=== PATIENT | female | born 1970 | race Caucasian/White ===

== ENCOUNTER 2020-04-21 16:13 | Outpatient (CLI) | payer OTHER, SELFPAY ==
--- NOTE | ~2020-04-21 | MM_ITS ---
EXAMINATION: MM screening dionicio BI w zoila HISTORY: Screening mammogram TECHNIQUE: Craniocaudal and mediolateral oblique 3-D tomosynthesis images were obtained and synthetic 2-D images were generated. CAD analysis was submitted and interpreted. COMPARISON: 12/02/2013, 11/08/2010 bilateral digital screening mammogram examinations BREAST PARENCHYMAL COMPOSITION: The breasts are heterogeneously dense, which may obscure small masses . FINDINGS: Stable mild fibroglandular asymmetry. There is no evidence of suspicious mass, calcificatio n, or architectural distortion to suggest malignancy in either breast. There has been no suspicious i nterval change. IMPRESSION: 1. No mammographic evidence of malignancy. 2. Recommend routine screening mammography in one year. BI-RADS Category 2: Benign finding(s). Reviewed, dictated and finalized at location A.
== END 2020-04-21 16:14 | disposition home or self-care (01) ==
LOC: ANHIMG 16:17
PROVIDERS: PCP Family Medicine; Visit Provider Obstetrics & Gynecology
DX: Z12.31 Encounter for screening mammogram for malignant neoplasm of breast (principal)
CPT/HCPCS: 77063; 77067

== ENCOUNTER 2021-05-03 07:37 | Outpatient (CLI) | payer OTHER, SELFPAY ==
[2021-05-03 16:16] LABS: Hemoglobin 12.5 g/dL (12.0-15.0); Mean Corpuscular HGB Conc 32.9 g/dl (32-36); Mean Corpuscular Hemoglobin 31.3 pg (26-34); Mean Platelet Volume 10.6 fl (7.4-10.4); Platelet Count Result 231 k/mm3 (150-375); Red Cell Distribution Width 11.8 % (11.5-14.5); White Blood Count 5.6 K/mm3 (4.5-10.0)
[2021-05-03 17:53] LABS: Alanine Aminotransferase 15 U/L (4-35); Albumin Level 5.2 g/dL (3.5-5.1); Alkaline Phosphatase 48 U/L (38-126); Anion Gap 6 mmol/L (8-16); Aspartate Amino Transferase 28 U/L (14-36); Bilirubin,Total 0.5 mg/dL (0.2-1.3); Blood Urea Nitrogen 10 mg/dL (7-17); Calcium 8.8 mg/dL (8.4-10.2); Carbon Dioxide 25 mmol/L (22-30); Chloride 103 mmol/L (98-107); Cholesterol 187 mg/dL (0-200); Estimated Glomerular Filt Rate > 60; Glucose 92 mg/dL (65-110); HDL Direct 96 mg/dL; Potassium 4.3 mmol/L (3.4-5.0); Sodium 134 mmol/L (137-145); Triglycerides 99 mg/dL (<150)
[2021-05-03 18:02] LABS: LDL Cholesterol Direct 86 mg/dL
== END 2021-05-03 07:38 | disposition home or self-care (01) ==
PROVIDERS: PCP Family Medicine; Visit Provider Family Medicine
DX: F51.01 Primary insomnia (principal); F41.1 Generalized anxiety disorder; Z13.220 Encounter for screening for lipoid disorders; I10 Essential (primary) hypertension
CPT/HCPCS: 36415; 80053; 80061; 84443; 85027

== ENCOUNTER 2021-05-24 08:33 | Outpatient (CLI) | payer OTHER, SELFPAY ==
--- NOTE | ~2021-05-24 | MM_ITS ---
EXAMINATION: MM screening [facility] BI w zoila HISTORY: Screening mammogram TECHNIQUE: Craniocaudal and mediolateral oblique 3-D tomosynthesis images were obtained and synthetic 2-D images were generated. CAD analysis was submitted and interpreted. COMPARISON: 04/21/2020, 12/02/2013, 11/08/2010 BREAST PARENCHYMAL COMPOSITION: The breasts are heterogeneously dense, which may obscure small masses . FINDINGS: There is no evidence of suspicious mass, calcification, or architectural distortion to sugg est malignancy in either breast. There has been no suspicious interval change. IMPRESSION: 1. No mammographic evidence of malignancy. 2. Recommend routine screening mammography in one year. BI-RADS Category 1: Negative Reviewed, dictated and finalized at location A. 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
== END 2021-05-24 08:34 | disposition home or self-care (01) ==
PROVIDERS: PCP Family Medicine; Visit Provider Obstetrics & Gynecology
DX: Z12.31 Encounter for screening mammogram for malignant neoplasm of breast (principal)
CPT/HCPCS: 77063; 77067

== ENCOUNTER 2021-07-13 09:20 | Emergency (ER) | payer OTHER, SELFPAY ==
[2021-07-13 09:26] VITALS: BP 132/82; PULSE 91; RESP 16; TEMP 37.2; O2SAT 100
--- NOTE | 2021-07-13 09:31 | ED.URI ---
HPI - URI/Sore Throat General Chief Complaint: Upper Respiratory Infection Stated Complaint: Flu test Time Seen by Provider: 07/13/21 09:31 Source: patient and family History of Present Illness HPI Narrative: Patient presents with generalized body aches and fever. Patient is requesting a flu test. Patient states her place of employment has several coworkers out ill with influenza. Patient denies any cough no shortness of breath no chest. Patient states she notified employee health and has a COVID-19 test scheduled for July 15. Patient is fully vaccinated and boosted for her COVID-19. Related Data Allergies Allergy/AdvReac Type Severity Reaction Status Date / Time levofloxacin Allergy Intermediate NAUSEA, Verified 07/13/21 09:54 VOMITING lorazepam Allergy Intermediate orthostatic Verified 07/13/21 09:54 hypotension Review of Systems Review of Systems: CONSTITUTIONAL: Denies chills, or sweats. Reports fever and generalized body aches EYES: Denies visual changes, redness, or discharge. ENT: Denies otalgia. Reports nasal congestion runny nose and sore throat CARDIOVASCULAR: Denies chest pain, palpitations, or edema. RESPIRATORY: Denies dyspnea. Reports occasional cough GASTROINTESTINAL: Denies abdominal pain, nausea, vomiting, or diarrhea. GENITOURINARY: Denies dysuria or hematuria. SKIN: Denies rash or itching. MUSCULOSKELETAL: Denies back pain, joint pain, or myalgia. Reports generalized body aches NEUROLOGIC: Denies headache, numbness, or weakness. PSYCHIATRIC: Denies anxiety or depression. PMFSH Family History Family History Mother Hypertension Family history of elevated blood lipids Father Family history of cardiovascular disease Cerebrovascular accident Grandparent Family history of thoracic aortic aneurysm Other Family history of attention deficit hyperactivity disorder (ADHD) Family history of malignant melanoma Family history of malignant neoplasm Family history of migraine headaches Social History Social History Alcohol intake: current Comments At time of signature, agree with nursing past medical, surgical, social and family history. There is no relevant family history pertinent to the presenting complaint Exam Narrative: The patient is a well-developed, well-nourished in no acute distress. SKIN: Skin is warm and dry without erythema, swelling or exudate. There is good turgor. No tenting. HEAD: Atraumatic. Normocephalic. No temporal or scalp tenderness. EYES: Moist and bright. Sclera and conjunctivae normal. No discharge. PERRLA. Extraocular motions intact. Gross visual acuity intact. EARS: Pinna is normal shape and contour. Clear external auditory canals. TM pearly fernandez with good cone of light, no erythema or suppuration. Bilateral cerumen noted no gross hearing deficit. NOSE: pink, moist mucosa with good air movement. Clear rhinorrhea without nasal flaring. Septum midline. Mouth: moist mucous membranes. THROAT; mild erythema noted to posterior oropharynx with moderate postnasal drainage. Without exudate or ulceration.. Uvula midline. Normal movement of soft palate. NECK: Supple and nontender with full range of motion without discomfort. No meningeal signs. LUNGS: Equal and bilateral breath sounds without wheezes, rales or rhonchi. CHEST: The chest wall is without retractions or use of accessory muscles. HEART: Has a regular rate and rhythm without murmur, gallops, click or rub. ABDOMEN: Soft, nontender with positive active bowel sounds. No rebound tenderness. EXTREMITIES: Without cyanosis, clubbing or edema. Equal 2+ distal pulses and 2 second capillary refill noted. NEUROLOGIC: alert, active, . The patient moves all extremities with normal muscle strength. Normal muscle tone is noted. Normal coordination is noted. NO focal neurological findings noted. Course C
== END 2021-07-13 10:12 | disposition home or self-care (01) ==
PROVIDERS: Emergency Provider Nurse Practitioner Family; PCP Family Medicine
DX: J11.1 Influenza due to unidentified influenza virus with other respiratory manifestations (principal); E78.00 Pure hypercholesterolemia, unspecified; I10 Essential (primary) hypertension; F41.9 Anxiety disorder, unspecified; F32.9 Major depressive disorder, single episode, unspecified
CPT/HCPCS: 87804; 99213; G0463

== ENCOUNTER → 2021-08-06 00:11 | Outpatient (CLI) | payer OTHER, SELFPAY ==
[2021-08-06 16:55] LABS: SARS-CoV-2 RNA PCR Positive
== END ==
PROVIDERS: PCP Family Medicine; Visit Provider Family Medicine
DX: U07.1 COVID-19 (principal); R05.9 Cough, unspecified
CPT/HCPCS: C9803; U0003; U0005

== ENCOUNTER 2022-01-13 11:33 | Outpatient (CLI) | payer OTHER, SELFPAY ==
--- NOTE | ~2022-01-13 | US_ITS ---
EXAMINATION: US venous doppler LE RT DATE: 01/13/2022 12:13 INDICATION: Right lower limb pain. TECHNIQUE: Grayscale ultrasound images without and with compression and Doppler ultrasound images of the right lower extremity veins were obtained. COMPARISON: None. FINDINGS: The visualized portions of right common femoral vein, profunda (deep) femoral vein, femoral vein, pop liteal vein, peroneal veins, posterior tibial veins, and greater saphenous vein outflow are patent. IMPRESSION: 1. No deep venous thrombosis. Reviewed, dictated and finalized at location A.
[2022-01-13 12:30] LABS: Hematocrit 38.9 % (37.0-47.0); Hemoglobin 13.1 g/dL (12.0-15.0); Mean Corpuscular HGB Conc 33.7 g/dl (32-36); Mean Corpuscular Hemoglobin 31.5 pg (26-34); Mean Corpuscular Volume 93.5 fl (80-100); Mean Platelet Volume 9.6 fl (7.4-10.4); Platelet Count Result 263 k/mm3 (150-375); Red Blood Count 4.16 M/mm3 (4.2-5.4); White Blood Count 9.2 K/mm3 (4.5-10.0)
[2022-01-13 13:15] LABS: Alanine Aminotransferase 15 U/L (6-35); Albumin Level 4.2 g/dL (3.5-5.1); Alkaline Phosphatase 54 U/L (38-126); Anion Gap 8 mmol/L (8-16); Aspartate Amino Transferase 27 U/L (14-36); Bilirubin,Total 0.4 mg/dL (0.2-1.3); Blood Urea Nitrogen 14 mg/dL (7-17); Calcium 8.7 mg/dL (8.4-10.2); Carbon Dioxide 22 mmol/L (22-30); Chloride 107 mmol/L (98-107); Cholesterol 192 mg/dL (0-200); Estimated Glomerular Filt Rate > 60; Glucose 93 mg/dL (65-110); HDL Direct 78 mg/dL; Magnesium 2.1 mg/dL (1.6-2.3); Sodium 137 mmol/L (137-145); Triglycerides 117 mg/dL (<150)
[2022-01-13 13:28] LABS: LDL Cholesterol Direct 71 mg/dL
== END 2022-01-13 11:34 | disposition home or self-care (01) ==
PROVIDERS: PCP Family Medicine; Visit Provider Family Medicine
DX: M79.604 Pain in right leg (principal); Z79.899 Other long term (current) drug therapy; M79.606 Pain in leg, unspecified; F41.9 Anxiety disorder, unspecified; I10 Essential (primary) hypertension; Z13.220 Encounter for screening for lipoid disorders; Z13.0 Encounter for screening for diseases of the blood and blood-forming organs and certain disorders involving the immune mechanism; M79.605 Pain in left leg
CPT/HCPCS: 36415; 80053; 80061; 83735; 85027; 93971

== ENCOUNTER 2022-08-11 08:30 | Outpatient (CLI) | payer OTHER, SELFPAY ==
[2022-08-11 10:21] LABS: Alanine Aminotransferase 21 U/L (6-35); Albumin Level 4.5 g/dL (3.5-5.1); Alkaline Phosphatase 50 U/L (38-126); Anion Gap 7 mmol/L (8-16); Aspartate Amino Transferase 28 U/L (14-36); Bilirubin,Total 0.6 mg/dL (0.2-1.3); Blood Urea Nitrogen 12 mg/dL (7-17); Calcium 8.6 mg/dL (8.4-10.2); Carbon Dioxide 25 mmol/L (22-30); Chloride 104 mmol/L (98-107); Estimated Glomerular Filt Rate > 60; Glucose 83 mg/dL (65-110); Potassium 3.9 mmol/L (3.4-5.0); Sodium 136 mmol/L (137-145)
== END 2022-08-11 08:31 | disposition home or self-care (01) ==
PROVIDERS: PCP Family Medicine; Visit Provider Obstetrics & Gynecology
DX: Z79.899 Other long term (current) drug therapy (principal)
CPT/HCPCS: 36415; 80053

== ENCOUNTER 2023-01-04 19:03 | Outpatient (NON) | payer OTHER, SELFPAY | END 2023-01-04 19:04 | disposition home or self-care (01) | LOC: ANHOBOP 19:05 → ANHLAB 19:10 | PROVIDERS: PCP Family Medicine; Visit Provider Family Medicine | DX: N39.0 Urinary tract infection, site not specified (principal) | CPT/HCPCS: 87086; 87088 ==

== ENCOUNTER 2023-01-31 13:50 | Outpatient (CLI) | payer OTHER, SELFPAY ==
[2023-01-31 14:23] LABS: Appearance Urine Clear (Clear); Bacteria Urine None Seen /hpf; Bilirubin Urine Negative (Negative); Blood Urine Negative (Negative); Color Urine Yellow (Yellow); Glucose Urine UA Negative (Negative); Ketones Urine Negative (Negative); Leukocyte Esterase Ur 1+ LEU/UL (Negative); Nitrate Urine Negative (Negative); Non Pathogenic Casts 0-2; Protein Urine Negative (Negative); RBC Urine 0-2 /hpf (0-2); Specific Grav Ur 1.007 (1.001-1.035); Squamous Epithelial Cell Urine Occasional /hpf (Few); Urobilinogen Urine 0.2 mg/dL (<2.0); pH Urine 6.5 (5.0-9.0)
[2023-01-31 14:27] LABS: Add Urine Microscopic? YES
== END 2023-01-31 13:51 | disposition home or self-care (01) ==
LOC: ANHLAB 13:52
PROVIDERS: PCP Family Medicine; Visit Provider Nurse Practitioner
DX: R35.0 Frequency of micturition (principal)
CPT/HCPCS: 81001; 87086

== ENCOUNTER 2023-03-08 09:38 | Outpatient (CLI) | payer OTHER, SELFPAY ==
--- NOTE | ~2023-03-08 | MR_ITS ---
EXAMINATION: MR foot RT wo con DATE: 03/08/2023 10:28 INDICATION: Right midfoot pain. TECHNIQUE: Magnetic resonance imaging (MRI) of the right foot was performed without intravenous contr ast. COMPARISON: None FINDINGS: There is a skin marker medial plantar to navicular. Bone alignment is normal. No fracture. Lisfranc ligament is normal. The joint spaces are normal. The musculature is normal. There is subcuta neous edema in the foot. There is a 2.0 x 0.8 x 0.4 cm multiloculated ganglion cyst dorsal to lateral intercuneiform joint. IMPRESSION: 1. No abnormality in the area of the skin marker. 2. 2.0 x 0.8 x 0.4 cm multiloculated ganglion cyst dorsal to the lateral intercuneiform joint. Reviewed, dictated and finalized at location E. IMPRESSION: 1. No abnormality in the area of the skin marker. 2. 2.0 x 0.8 x 0.4 cm multiloculated ganglion cyst dorsal to the lateral interc uneiform joint.
== END 2023-03-08 09:39 | disposition home or self-care (01) ==
PROVIDERS: PCP Family Medicine; Visit Provider Podiatrist Foot & Ankle Surgery
DX: M79.671 Pain in right foot (principal)
CPT/HCPCS: 73718

== ENCOUNTER 2023-08-01 08:00 | Outpatient (CLI) | payer OTHER, SELFPAY ==
[2023-08-01 19:26] LABS: Alanine Aminotransferase 44 U/L (6-35); Alkaline Phosphatase 76 U/L (38-126); Anion Gap 6 mmol/L (8-16); Aspartate Amino Transferase 83 U/L (14-36); Bilirubin,Total 0.6 mg/dL (0.2-1.3); Blood Urea Nitrogen 16 mg/dL (7-17); Calcium 9.2 mg/dL (8.4-10.2); Carbon Dioxide 29 mmol/L (22-30); Chloride 101 mmol/L (98-107); Cholesterol 190 mg/dL (0-200); Estimated Glomerular Filt Rate > 60; Glucose 84 mg/dL (65-110); HDL Direct 64 mg/dL; Potassium 4.4 mmol/L (3.4-5.0); Sodium 136 mmol/L (137-145); Triglycerides 54 mg/dL (<150)
[2023-08-01 19:37] LABS: LDL Cholesterol Direct 103 mg/dL
[2023-08-01 20:22] LABS: Free T4 Free Thyroxine 1.01 ng/mL (0.78-2.19)
[2023-08-01 20:51] LABS: Hemoglobin A1C 4.8 % (<5.7)
== END 2023-08-01 08:01 | disposition home or self-care (01) ==
LOC: ANHWCLAB 08:01
PROVIDERS: PCP Family Medicine
DX: E78.5 Hyperlipidemia, unspecified (principal); R63.5 Abnormal weight gain; I10 Essential (primary) hypertension
CPT/HCPCS: 36415; 80053; 80061; 83036; 84439; 84443

== ENCOUNTER 2023-08-15 07:53 | Outpatient (CLI) | payer OTHER, SELFPAY ==
--- NOTE | ~2023-08-15 | US_ITS ---
Limited Abdominal Sonogram: Real-time sonographic imaging of the right upper quadrant was performed. Clinical History: Abnormal serum enzyme levels Findings: The liver appears normal with no evidence of bile duct dilatation. There is a 1 cm hyperec hoic mass in liver, most likely a small hemangioma. 2 hepatic cysts are present, each measuring 1.7 c m in length. Main portal vein demonstrates normal direction of flow. The gallbladder is well distende d, and appears normal with no evidence of gallstone or wall thickening. The common bile duct measures 4 mm. The visualized pancreas, aorta, and IVC are unremarkable. Impression: 1 cm hyperechoic hepatic mass, most likely small hemangioma. Consider confirmation with MRI, as indic ated. Additional hepatic cysts, as above. Reviewed, dictated and finalized at [facility]. 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 Consider confirmat ion with MRI, as indicated. Additional hepatic cysts, as above.
== END 2023-08-15 07:54 | disposition home or self-care (01) ==
LOC: ANHIMG 07:54
PROVIDERS: PCP Family Medicine; Visit Provider Nurse Practitioner
DX: R74.8 Abnormal levels of other serum enzymes (principal); K76.89 Other specified diseases of liver
CPT/HCPCS: 76705

== ENCOUNTER 2023-08-23 07:53 | Outpatient (CLI) | payer OTHER, SELFPAY ==
--- NOTE | ~2023-08-23 | MR_ITS ---
EXAMINATION: MR abdomen wo/w con INDICATION: Indeterminate liver mass on recent ultrasound TECHNIQUE: Coronal SSFSE ARC, WATER:coronal LAVA-FLEX, Coronal 2D FIESTA FatSat, Axial SSFSE BH ARC, Axial 3D DualEcho BH, Axial SSFSE-IR, Axial DWI b=500, Axial 2D FIESTA FatSat, pre and dynamic postco ntrast Axial LAVA ARC, postcontrast Coronal In and Opposed phase LAVA FLEX COMPARISON: Ultrasound dated 08/15/2023 CONTRAST: Multihance, 15 cc FINDINGS: There is a 1.2-0.8 cm T1 hypointense, T2 hyperintense mass in liver segment which demons trates early interrupted peripheral nodular enhancement and progressive filling on successive postcon trast sequences, consistent with a hemangioma. A 5 mm lesion with similar signal characteristics is p resent in liver segment VII. There is a 2.5 cm cyst in liver segment Jigar. There is a 1.5 cm cyst in l iver segment II. No suspicious liver mass is identified. The spleen, pancreas, gallbladder, and adren al glands are normal. The kidneys are unremarkable. There are no pathologically enlarged abdominal ly mph nodes. No dilated loops of bowel are evident. IMPRESSION: 1. Hemangiomas and cysts of the liver corresponding to the sonographically detected liver masses. Reviewed, dictated and finalized at location L. 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 Hemangiomas and cysts of the liver corresponding to the sonographically dete cted liver masses.
== END 2023-08-23 07:54 | disposition home or self-care (01) ==
PROVIDERS: PCP Family Medicine; Visit Provider Nurse Practitioner
DX: K76.89 Other specified diseases of liver (principal); R16.0 Hepatomegaly, not elsewhere classified
CPT/HCPCS: 74183; A9577

== ENCOUNTER 2023-08-30 07:58 | Outpatient (CLI) | payer OTHER, SELFPAY ==
[2023-08-30 09:05] LABS: Anion Gap 4 mmol/L (8-16); Blood Urea Nitrogen 16 mg/dL (7-17); Carbon Dioxide 29 mmol/L (22-30); Chloride 104 mmol/L (98-107); Estimated Glomerular Filt Rate > 60; Potassium 4.3 mmol/L (3.4-5.0); Sodium 137 mmol/L (137-145)
[2023-08-30 09:06] LABS: Alanine Aminotransferase 23 U/L (6-35); Albumin Level 4.2 g/dL (3.5-5.1); Alkaline Phosphatase 60 U/L (38-126); Aspartate Amino Transferase 37 U/L (14-36); Bilirubin,Total 0.7 mg/dL (0.2-1.3); Glucose 90 mg/dL (65-110)
== END 2023-08-30 07:59 | disposition home or self-care (01) ==
LOC: ANHLAB 07:59
PROVIDERS: PCP Family Medicine; Visit Provider Nurse Practitioner
DX: R74.8 Abnormal levels of other serum enzymes (principal)
CPT/HCPCS: 36415; 80053

== ENCOUNTER 2023-10-08 07:53 | Outpatient (CLI) | payer OTHER, SELFPAY ==
--- NOTE | ~2023-10-08 | MM_ITS ---
EXAMINATION: MM screening dionicio BI w zoila HISTORY: Screening mammogram TECHNIQUE: Craniocaudal and mediolateral oblique 3-D tomosynthesis images were obtained and synthetic 2-D images were generated. CAD analysis was submitted and interpreted. COMPARISON: 05/24/2021, 04/21/2020 bilateral screening mammogram examinations BREAST PARENCHYMAL COMPOSITION: The breasts are heterogeneously dense, which may obscure small masses . FINDINGS: There is no evidence of suspicious mass, calcification, or architectural distortion to sugg est malignancy in either breast. There has been no suspicious interval change. IMPRESSION: 1. No mammographic evidence of malignancy. 2. Recommend routine screening mammography in one year. BI-RADS Category 1: Negative Reviewed, dictated and finalized at location A.
== END 2023-10-08 07:54 | disposition home or self-care (01) ==
LOC: ANHIMG 07:56
PROVIDERS: PCP Family Medicine; Visit Provider Obstetrics & Gynecology
DX: Z12.31 Encounter for screening mammogram for malignant neoplasm of breast (principal)
CPT/HCPCS: 77063; 77067

== ENCOUNTER 2024-02-05 15:58 | Outpatient (CLI) | payer OTHER, SELFPAY ==
--- NOTE | ~2024-02-05 | US_ITS ---
EXAMINATION: US pelvic complete w TV DATE: 02/05/2024 17:10 INDICATION: Postmenopausal bleeding TECHNIQUE: Multiple transabdominal and endovaginal sonographic images of the pelvis were obtained. COMPARISON: None. FINDINGS: Uterus: 9.2 x 4.5 x 7.6 cm. Endometrial complex measures 9 mm. Right Ovary: 3.6 x 1.8 x 2.8 cm. Vascular flow is present. No adnexal mass. Left Ovary: 4.8 x 1.8 x 2.9 cm. Vascular flow is present. No adnexal mass. There is no free fluid in the pelvis. IMPRESSION: Endometrial thickening. Consider endometrial sampling. Reviewed, dictated and finalized at location K.
== END 2024-02-05 15:59 | disposition home or self-care (01) ==
PROVIDERS: PCP Family Medicine
DX: N95.0 Postmenopausal bleeding (principal)
CPT/HCPCS: 76830; 76856

== ENCOUNTER 2024-02-19 14:26 | Outpatient (CLI) | payer OTHER, SELFPAY ==
[2024-02-21 07:03] LABS: FSH 34.3 mIU/mL; LH 15.2 mIU/mL
[2024-02-29 00:09] LABS: Estradiol, Ultrasensitive 58 pg/mL
== END 2024-02-19 14:27 | disposition home or self-care (01) ==
LOC: ANHLAB 14:28
PROVIDERS: PCP Family Medicine; Visit Provider Obstetrics & Gynecology
DX: N95.1 Menopausal and female climacteric states (principal)
CPT/HCPCS: 36415; 82670; 83001; 83002

== ENCOUNTER 2024-09-19 07:34 | Outpatient (CLI) | payer OTHER, SELFPAY ==
--- OUTSIDE RECORDS SUMMARY | 2024-09-19 07:42 | XMS_ITS | Data Portability ---
Author Organization [facility] in Office Address [address] [place] [address] Assessment Encounter Date Assessment Date Assessment LastModified by Organization Details LastModified Time 10/24/2023 10/24/2023 Today, we had a long discussion on the importance of weight on future health problems and she is motivated to start diet and lifestyle changes at this time. We discussed that fighting off excess weight could help reduce her future risk of metabolic syndrome, diabetes, cardiovascular disease, and other health problems. At this point, she is interested in trying medication for weight management. I spent over 35 minutes of oqnx-ct-kloz counseling and care coordination time with the patient. This includes reviewing medical records (medical, surgical, family and social history); updating medication and allergy information in the electronic health record; and ordering labs, medications, and education materials to continue patient care. I also spent extensive time during this weight management consultative visit educating, counseling and informing the patient on her personalized risk/benefit ratio on the use of lifestyle changes and medication use for weight management. Reviewed medication use and link to medullary thyroid cancer. [email or web address] Not available 10/28/2023 14:22:41 01/21/2024 01/21/2024 I spent 30 minutes of tmaa-le-wwcx counselling and care coordination time with the patient. This includes reviewing medical records (medical, surgical, family and social history); updating medication and allergy information in the electronic health record; and ordering labs, medications, and education materials to continue patient care. [email or web address] Not available 01/21/2024 16:54:53 05/21/2024 05/21/2024 I spent 25 minutes of ptpp-sc-tmuu counselling and care coordination time with the patient. This includes reviewing medical records (medical, surgical, family and social history); updating medication and allergy information in the electronic health record; and ordering labs, medications, and education materials to continue patient care. [email or web address] Not available 05/21/2024 12:24:22 07/15/2024 07/15/2024 I spent 30 minutes of ozmc-tl-gsax counselling and care coordination time with the patient. This includes reviewing medical records (medical, surgical, family and social history); updating medication and allergy information in the electronic health record; and ordering labs, medications, and education materials to continue patient care. [email or web address] Not available 07/15/2024 15:59:49 09/02/2024 09/02/2024 I spent 30 minutes of tpjo-ds-ddio counselling and care coordination time with the patient. This includes reviewing medical records (medical, surgical, family and social history); updating medication and allergy information in the electronic health record; and ordering labs, medications, and education materials to continue patient care. [email or web address] Not available 09/02/2024 15:49:49 Plan of Treatment Reminders Order Date Submit Date Provider Last Modified By Organization Details Last Modified Time Details Appointments [id number] 2024 10:00A Ming Duff NP Not available Not available Not available Lab None recorded. Referral None recorded. Procedures None recorded. Surgeries None recorded. Imaging US, pelvis, transabdo lelo + transvagi nal - post menopausa l with three episodes recent 3 day vag bleed thank you 2023 024 [facility], [address], [address], 02/06/2024 10:15:35 Medication Orders Semagluti de MIDI 2024 025 [facility], [address] [facility], [place], [address], 09/02/2024 15:51:53 Semagluti de MIDI 2024 025 [facility], [address] [facility], [place], [address], 07/15/2024 12:50:11 estradiol 0.05 mg/24 hr semiweekl y transderm al patch [address] [id number], [address] [facility], [place], [place], [id number], 01/21/2024 16:56:43 progester one micronize d 100 mg capsule [address] [facility] #[id number], [address], [place], [place], [id number], 01/21/2024 16:56:43 Semagluti de MIDI 2023 024 [facility], [address] [facility] [address], [place], [address], 10/24/2023 12:10:19 Patient TargetsNo targets recorded. Patient Instructions Encounter Date Encounter Id Patient Instructions Last Modified By Organization Details Last Modified Time 10/24/2023 [id number] Sleep Disruption MID[facility] [email or web address] Not available 10/24/2023 12:10:14 [facility] FAQs [email or web address] Not available 10/24/2023 12:10:14 Any requested follow-up visits are listed below in the Plan of Care section. Go directly to the [facility] materials scheduler at [email or web address] to book a time. [email or web address] Not available 10/23/2023 21:12:08 It was a pleasur e to meet with you today! We discussed your health concerns related to your recent weight loss and the return of your menstrual cycle. Your Care Plan Together, we decided that you would: - Continue with your current dose of semaglutide (0.5 milligrams) weekly. Please confirm this dosage with [facility] when you reorder your medication. If there's any confusion, let me know via the patient portal and I'll be happy to assist. - Schedule an ultrasound at [facility] to investigate the cause of your recent menstrual bleeding. Try to schedule this close to the time of your next expected period. If there are any issues with scheduling, please let me know. - Increase your intake of fruits and vegetables. Consider adding a multivitamin or green supplement to your diet to ensure you're getting all the necessary nutrients. - Try to eat more frequently throughout the day, aiming for five to six small meals. This can help slow down your weight loss and ensure you're getting enough calories to maintain your muscle mass. - Incorporate weight lifting into your exercise routine. Consider using BigRepube for guidance and aim to do this twice a week. This can help preserve and build muscle mass. - We will order labs during our next meeting to monitor your progress. Please carefully review the care plan we have decided upon, specific information regarding your medication, and important details about your treatment detailed below. Remember, we're playing the long game here. It's important to make sure your weight loss is sustainable and healthy, and that you're getting all the nutrients you need. If you have any questions or concerns, or if anything unusual comes up, please don't hesitate to reach out via the patient portal. Thank you for trusting us with your care! [email or web address] Not available 10/28/2023 14:19:56 01/21/2024 [id number] Any requested follow-up visits are listed below in the Plan of Care section. Go directly to the [facility] materials scheduler at [email or web address] to book a time. [email or web address] Not available 01/21/2024 12:58:46 It was a pleasur e to meet with you today! We discussed your health concerns related to menopause and weight management. Your Care Plan Together, we decided that you would: - Continue taking semaglutide at a maintenance dose of 15 units. This medication is helping you maintain your weight and reduce food cravings. Please continue to monitor your weight and let us know if there are any significant changes. - Continue using the estrogen patch for menopause symptoms. You reported no problems with this treatment. - Schedule and complete a transvaginal and transabdominal ultrasound. This is to investigate the monthly shedding you've been experiencing. It's important to note the number of days from the start of the last shed when you schedule the ultrasound. Please let us know the results via the patient portal. - Work on increasing your muscle mass. This can help with weight management and overall strength as you age. Consider incorporating activities such as weighted vest walks, lifting small dumbbells, and doing squats and lunges into your routine. - Schedule a follow-up appointment for six weeks from now, on February 25 at 8:00 am. We will discuss the results of your ultrasound at this appointment. - Let us know when you need to reorder semaglutide via the patient portal. Please carefully review the care plan we have decided upon, specific information regarding your medication, and important details about your treatment detailed above. Thank you for trusting us with your care! [email or web address] Not available 01/21/2024 13:27:46 05/21/2024 [id number] Any requested follow-up visits are listed below in the Plan of Care section. Go directly to the [facility] materials scheduler at [email or web address] to book a time. [email or web address] Not available 05/21/2024 08:02:46 It was a pleasur e to meet with you today! We discussed your health concerns related to your weight management and the use of semaglutide. Your Care Plan Together, we decided that you would: - Continue using semaglutide, but at a slightly lower dose than prescribed to maintain your current weight of around 140 pounds (BMI 24). - Consider moving your semaglutide injection to every 10 days instead of weekly. Please mague this on your calendar carefully to ensure you do not exceed a 2-week gap between injections. If you do exceed two weeks, you may need to start again at the initial dose to allow your stomach to acclimate. - Be aware of the concentration of the semaglutide you receive. Always read the label on the bottle when you first get it to ensure it's the same or if they've adjusted it for you. This is important as changes in concentration can affect your dosage and potentially cause a roller coaster of a week. - Request a refill of your semaglutide from [facility] when you are on your last dose. If they tell you that you don't have a refill, let me know on the portal and I'll put one in right away. - Schedule a follow-up appointment for July 15 at 11:30 AM Central Time. Please carefully review the care plan we have decided upon, specific information regarding your medication, and important details about your treatment detailed below. Remember, if you have any questions or concerns, or if your symptoms worsen or do not improve, please reach out to me via the patient portal. Thank you for trusting us with your care! [email or web address] Not available 05/21/2024 12:22:44 07/15/2024 [id number] Sleep Disruption MIDI [email or web address] Not available 07/15/2024 12:50:05 [facility] FAQs [email or web address] Not available 07/15/2024 12:50:05 Any requested follow-up visits are listed below in the Plan of Care section. Go directly to the [facility] materials scheduler at [email or web address] to book a time. [email or web address] Not available 07/15/2024 07:39:43 It was a pleasur e to meet with you today! We discussed your health concerns related to weight management and your ongoing treatment with semaglutide. Your Care Plan Together, we decided that you would: - Continue taking your compounded semaglutide from [facility]. You have been taking between 25 and 30 units in a 1 cc needle, which equates to approximately 0.6 to 0.75 milligrams. This is a reduction from your previous dose of 1 milligram (40 units), which aligns with your goal of maintaining your current weight rather than continuing to lose weight. - Refill your semaglutide prescription. I will send the order to [facility] today. - Schedule a follow-up appointment for September 02 at 11:30 Central Time. We will continue to monitor your progress and adjust your treatment plan as needed. - Continue to manage your menopause symptoms with your new OBGYN. If you encounter any issues or need any assistance in the interim, please do not hesitate to reach out to me. Please carefully review the care plan we have decided upon, specific information regarding your medication, and important details about your treatment detailed above. Thank you for trusting us with your care! For more information regarding common questions about weight in midlife, watch this short video from our Echo Vascular Technologist, . You will need to copy the following link into your browser to access the video: [email or web address] Of course, if you have further questions after watching, please reach out and I will be happy to support you. [email or web address] Not available 07/15/2024 12:52:54 09/02/2024 [id number] [facility] FAQs [email or web address] Not available 09/02/2024 15:51:52 Any requested follow-up visits are listed below in the Plan of Care section. Go directly to the [facility] materials scheduler at [email or web address] to book a time. [email or web address] Not available 09/01/2024 18:47:01 It was a pleasur e to meet with you today! We discussed your health concerns related to weight maintenance and menopause. Your Care Plan Together, we decided that you would: - Continue your maintenance dose of semaglutide (0.75 milligrams), which you are currently taking at 0.3 on the insulin pen. This dose is lasting you for 6 weeks. I will put in a refill order for you, which you can activate when you need it. - Maintain your current weight around 140 pounds, which is a fantastic achievement. Remember to weigh yourself frequently to monitor any changes and make necessary adjustments. - Continue your menopausal therapy with estrogen and progesterone, which has been beneficial in managing your weight and improving your sleep. - Follow the four habits common among people who have maintained significant weight loss: weigh yourself frequently, eat breakfast every day, exercise for at least 30 minutes daily, and limit your television watching time. - Schedule a follow-up appointment with me on November 03 at 12:00 PM. We will check in on your progress and make any necessary adjustments to your treatment plan. Please remember to reach out if you need anything between now and your next appointment. If anything changes with your medication availability or if you have any concerns, please let me know through the patient portal. Please carefully review the care plan we decided upon, specific information regarding your medication, and important details about your treatment detailed above. Thank you for trusting us with your care! For more information regarding common questions about weight in midlife, watch this short video from our Echo Vascular Technologist, . You will need to copy the following link into your browser to access the video: [email or web address] Of course, if you have further questions after watching, please reach out and I will be happy to support you. [email or web address] Not available 09/02/2024 12:51:22 Reason for Referral None Reported. Results Created Date Observation Date Name Description Value Unit Range Abnormal Flag Note LastModifiedBy Organization Detail LastModifiedTime 02/06/2002/05/2024 darling BROOKS s, trans abdom inal + trans vagin al No observ ation record ed. [facility] [address], [place], [address], 02/07/2024 08:48:14 02/06/2002/05/2024 darling BROOKS, compl ete No observ ation record ed. [email or web address] Not Available 2023 16:19:18 Result Notes None recorded. Problems Name Problem SNOMED Code Status Onset Date Resolution Date Notes Provider Name and Address Organization Details Recorded Time Hyperlipide eitan 77305859 Active 2022 [place] [address] [place], [address], [facility] 3 13:43:21 Chronic depression 082431960 Active 2022 [place] [address] [place], [address], [facility] 3 14:51:31 Unintention al weight gain 8849169495566 04 Active 2022 [place] [address] [place], [address], [facility] 3 15:32:12 Screening for malignant neoplasm of breast Active 2023 [place] [address] [place], [address], [facility] 4 13:05:22 Attention deficit hyperactivi ty disorder 685309822 Active 2023 [place] [address] [place], [address], [facility] 4 13:12:38 Cognitive function finding 172953509 Active 2023 Marina Duff [place] [address] [place], [address], [facility] 4 14:56:13 Weight gain 0159324 Active 2023 [place], [address], [facility] 4 18:43:18 Liver enzymes level above reference range 371731555 Active 2023 [place], [address], [facility] 4 20:39:28 Body mass index 30+ - obesity 823473366 Active 2023 SHAGGY Walker [place], [place], [address] [place] [address] 2, [facility] 4 20:40:11 Fatigue 53557142 Active 2023 [place] [address] [address] [place] [address], [facility] 4 09:00:14 Abnormal weight gain 156081212 Active 2023 [place] [address] [address] [address], [facility] 4 09:00:14 Obesity 889020756 Active 2023 [place] [address] [address] [place] [address] 2, [facility] 4 16:59:49 Postmenopau matilda bleeding 71863048 Active 2023 [place] [address] [address] [place] [address], [facility] 4 12:12:12 Menopausal symptom 18250901 Active 2022 Marina Duff [place] [address] [place] [address], [facility] 3 10:27:39 Polycystic ovary syndrome 636541235 Active 2022 [place] [address] [address] [place] [address], [facility] 3 12:53:50 Essential hypertensio n 83713633 Active 2022 [place] [address] [address] [place] [address], [facility] 3 13:03:55 Genitourina ry syndrome of menopause 1636538659035 9104 Active 2022 [place] [address] [address] [place] [address], [facility] 3 14:31:11 Problem Notes None recorded. Procedures Surgical History None recorded. Imaging Results Imaging Date Name Status LastModified by Organization Details LastModified Time 02/05/2024 US, pelvis, transabdominal + transvaginal completed [facility] [address], [place], [address], 02/07/2024 08:48:14 02/05/2024 US, pelvis, complete completed [email or web address] Information not available 02/06/2024 16:19:18 Procedure Notes None recorded. Medical Equipment None Reported. Allergies Allergen ID Allergen Name Allergen Category Reaction Reaction Severity Criticality Documentation Date Start Date Code Code System Note Provider Name and Address Organization Details Recorded Time 21574 Levaquin medicatio n Not available Not available Not available 05/08/2023 36248 2 RxNorm Not Available Not Available Not Available 432098 levofloxa matt medicatio n nausea vomiting Not available Not available Not available 09/02/2024 69844 RxNorm React ion: Nause a, Vomit ing, Not Available Not Available Not Available Medications Name Sig Start Date Stop Date Status Note LastModified by Organization Details LastModified Time Semaglutide MIDI Inject 1.0 mg SQ weekly 2023 active Not Available Not Available Not Avai lable Semaglutide MIDI Inject 0.5 mg SQ weekly 2023 active Not Available Not Available Not Avai lable Semaglutide MIDI Inject 1.0 mg SQ weekly 2024 active Not Available Not Available Not Avai lable Semaglutide MIDI Inject 1.0 mg SQ weekly 2024 active Not Available Not Available Not Avai lable Semaglutide MIDI Inject 0.5 mg weekly x 4 weeks 2023 active Not Available Not Available Not Avai lable Semaglutide MIDI Inject 0.5 mg SQ weekly 2023 active Not Available Not Available Not Avai lable Semaglutide [facility]I Inject 0.25mg SQ weekly 2023 active Not Available Not Available Not Avai lable Semaglutide MIDI Inject 1.0 mg SQ weekly 2023 active Not Available Not Available Not Avai lable Bundle B: 0.5 mL/week - [facility] Inject 0.5ml (0.5mg) SQ once weekly. 07/08/ 2024 11/20 /2024 completed Not Available Not Available Not Available metformin 500 mg tablet TAKE 2 TABLETS BY MOUTH TWICE DAILY active Not Available Not Available No t Available trazodone 50 mg tablet TAKE 1 TABLET BY MOUTH DAILY active Not Available Not Available No t Available azithromyci n 250 mg tablet TAKE 2 TABLETS BY MOUTH TODAY THEN TAKE 1 TABLET BY MOUTH DAILY X 4 DAYS 01/20 completed Not Available Not Available Not Available prednisone 20 mg tablet TAKE 1 TABLET BY MOUTH DAILY FOR 5 DAYS. TAKE WITH FOOD EARLY IN THE DAY active Not Available Not Available No t Available fluoxetine 10 mg tablet 05/08 completed Not Available Not Available Not Available estradiol 0.05 mg/24 hr semiweekly transdermal patch active Not Available Not Available Not Available alprazolam 0.25 mg tablet TAKE 1 TABLET BY MOUTH THREE TIMES DAILY NEEDED FOR ANXIETY active Not Available Not Available No t Available metoprolol succinate ER 25 mg tablet,exte nded release 24 hr TAKE 1 TABLET BY MOUTH DAILY active Not Available Not Available No t Available methylpredn isolone 4 mg tablets in a dose pack FOLLOW PACKAGE DIRECTION S 01/20 completed Not Available Not Available Not Available fluoxetine 20 mg capsule TAKE 1 CAPSULE BY MOUTH DAILY active Not Available Not Available No t Available progesteron e micronized 100 mg capsule TAKE 1 CAPSULE BY MOUTH DAILY AT BEDTIME active Not Available Not Available No t Available amoxicillin 875 mg-potassiu m clavulanate 125 mg tablet TAKE 1 TABLET BY MOUTH TWICE DAILY 01/20 completed Not Available Not Available Not Available bupropion HCl XL 150 mg 24 hr tablet, extended release TAKE 1 TABLET BY MOUTH EVERY DAY active Not Available Not Available No t Available nitrofurant oin monohydrate /macrocryst als 100 mg capsule TAKE 1 CAPSULE BY MOUTH EVERY 12 HOURS FOR 5 DAYS active Not Available Not Available No t Available estradiol 10 mcg vaginal tablet Insert 1 tablet every day by vaginal route for 30 days. active Not Available Not Available No t Available metoprolol succinate ER 25 mg capsule sprinkle, ext. release 24 hr active Not Available Not Available Not Available EluRyng 0.12 mg-0.015 mg/24 hr vaginal ring INSERT 1 RING VAGINALLY EVERY MONTH 01/20 completed Not Available Not Available Not Available EluRyng 01/20 completed Not Available Not Available Not Available Vitals Date Recorded Body height Body mass index (BMI) Body weight Provider Name and Address Organization Details Last Updated DateTime 07/15/2024 162.56 cm 24.2 kg/m2 [address].52 [place] [address] [facility] 07/15/2024 12:40:21 Date Recorded Body height Body mass index (BMI) Body weight Provider Name and Address Organization Details Last Updated DateTime 09/02/2024 162.56 cm 24 kg/m2 [address].93 [place] [address] [place] [id number], [facility] 09/02/2024 12:34:30 Date Recorded Body height Body mass index (BMI) Body weight Provider Name and Address Organization Details Last Updated DateTime 10/24/2023 162.56 cm 26.9 kg/m2 [address] [place] [address] [place] [id number], [facility] 10/24/2023 12:02:50 Date Recorded Body height Body mass index (BMI) Body weight Provider Name and Address Organization Details Last Updated DateTime 01/21/2024 162.56 cm 26.1 kg/m2 [address].04 [place] [address] [address] [place] [id number], [facility] 01/21/2024 13:01:14 Date Recorded Body height Body mass index (BMI) Body weight Provider Name and Address Organization Details Last Updated DateTime 05/21/2024 162.56 cm 24 kg/m2 [address].93 [place] [address] [place] [id number], [facility] 05/21/2024 12:03:09 Social History None recorded. Functional Status None recorded. Mental Status None recorded. Family History Nothing Reported. Medical History Condition Response Polycystic ovary syndrome Y Hypertension Y High Cholesterol Y Gynecological HistoryNo gynecological history recorded. Obstetrics History GPAL:G 2 P 2 0 0 0 Type Value Full Term 2 Total 2 Past Encounters Encounter ID Performer Location Encounter Start Date Encounter Closed Date Diagnosis/Indication Diagnosis SNOMED-CT Code Diagnosis ICD10 Code Diagnosis Note [id number] Katalina Pizarro MD Main Office [address] [place] [address] 05/08/2023 12:01:55 05/09/2023 06:10:20 Menopausal symptom 64672070 N95.1 Earline patient , with no cycle r/t using eluryng. did have hot flashes and night sweats when not using in late 40's. Experienci ng vaginal dryness although not painful sex. - Patient is currently using Eluryng for contracept ion but is experienci ng symptoms consistent with menopause, such as hot flashes and night sweats.- Recommende d transition ing from Eluryng to a bioidentic al patch twice a week, balanced with a bioidentic al progestero ne capsule nightly to manage menopausal symptoms.- Educated the patient about the benefits of this treatment, including protection against heart attack, stroke, and osteoporos is.- Scheduled a follow-up appointmen t in four weeks to assess the effectiven ess of the new treatment regimen. Contracept ion care management [id number] Z30.9 age 52 Genitourin rafi syndrome of menopause [id number] N95.8 - Patient reports vaginal dryness, a common symptom of genitourin rafi syndrome of menopause. - Prescribed either Vagifem or Yuvafem depending on insurance coverage, to be used nightly for two weeks and then twice weekly to manage vaginal dryness.- Educated the patient on the importance of maintainin g the health of the vulva, vagina, bladder, and urethra during menopause. Essential hypertension 73792166 I10 - Patient is currently taking Metoprolol for essential hypertensi on under care of pcp Polycystic ovary syndrome [id number] E28.2 did have fertility treatment for second child [id number] Katalina Pizarro MD Main Office [address] [place] [address] 06/11/2023 12:30:27 06/12/2023 05:43:07 Menopausal symptom [id number] N95.1 - Patient's recent onset of breast soreness is likely due to the estrogen dose in her hormone replacemen t therapy (HRT).- Advised the patient to monitor the symptom and report if it does not resolve within the next couple of weeks.- If the symptom persists, the plan is to reduce the estrogen dose to 0.0375.- Patient's improved sleep pattern is a positive indication of the effectiven ess of the HRT. Earline patient , with no cycle r/t using eluryng. did have hot flashes and night sweats when not using in late 40's. Experienci ng vaginal dryness although not painful sex.: breast soreness started in the last week.is frustrated with weight gain - overnight 30 pounds in the last year. Patient is a 52 year old female presenting with concerns about recent symptoms including dry eyes, weight gain, and breast soreness since starting hormonal replacemen t therapy. Is reporting better and deeper sleep, and is sleeping through the night. Genitourin rafi syndrome of menopause [id number] N95.8 - Patient reports no issues with the vagifem treatment. - - Patient reports vaginal dryness, a common symptom of genitourin rafi syndrome of menopause. - Prescribed either Vagifem or Yuvafem depending on insurance coverage, to be used nightly for two weeks and then twice weekly to manage vaginal dryness.- Educated the patient on the importance of maintainin g the health of the vulva, vagina, bladder, and urethra during menopause. Polycystic ovary syndrome [id number] E28.2 did have fertility treatment for second child Essential hypertension [id number] I10 - Patient is currently taking Metoprolol for essential hypertensi on under care of pcp Chronic depression [id number] [id number] F32.A Unintentio nal weight gain [id number] 81337 R63.5 - Patient has gained weight rapidly, possibly due to menopause and a drop in estrogen levels causing insulin resistance .- Ordered blood labs including a complete metabolic panel, thyroid screen, and hemoglobin A1c to assess the patient's overall health and glucose metabolism .- Discussed potential weight loss medication s such as Ozempic and Metformin, but patient's insurance does not cover these.- Provided dietary and exercise recommenda tions to aid in weight loss, including the rule of a hundred (over 100 grams of protein, less than 100 grams of carbs a day, and 100 ounces of water a day), and regular weight training.- Will consider prescribin g low-dose Wellbutrin to aid in weight loss as it is not contraindi cated to use with current rx fluoxetine . discussed with patient including reasons to d/c (anxiety). Hyperlipidemia 93984035 E78.5 [id number] Katalina Pizarro MD Main Office [address] [place] [address] 07/30/2023 12:02:13 08/01/2023 05:04:58 Menopausal symptom [id number] N95.1 - The patient's menopausal symptoms, including breast soreness and insomnia, have been managed with hormone replacemen t therapy.- The breast soreness has decreased and the patient reports improved sleep quality, which suggests the therapy is effective. - Will continue the current hormone replacemen t therapy regimen and monitor for any changes in symptoms.- Scheduled a follow-up appointmen t in December to reassess the effectiven ess of the treatment. - Patient's recent onset of breast soreness is likely due to the estrogen dose in her hormone replacemen t therapy (HRT).- Advised the patient to monitor the symptom and report if it does not resolve within the next couple of weeks.- If the symptom persists, the plan is to reduce the estrogen dose to 0.0375.- Patient's improved sleep pattern is a positive indication of the effectiven ess of the HRT. Earline patient , with no cycle r/t using eluryng. did have hot flashes and night sweats when not using in late 40's. Experienci ng vaginal dryness although not painful sex.: breast soreness started in the last week.is frustrated with weight gain - overnight 30 pounds in the last year. Patient is a 52 year old female presenting with concerns about recent symptoms including dry eyes, weight gain, and breast soreness since starting hormonal replacemen t therapy. Is reporting better and deeper sleep, and is sleeping through the night.07/03 02/22: breast soreness did go away and now one month later it has returned but less so. The dry eyes have resolved. Sleeping better than ever in her life. Despite this notices continued cognitive issues -- can see a word but she cannot say it -- this is disruptive at work. sometimes loses the thread mid sentence The other day put a qtip in her nose instead of her ear. will call a fork a spoon for example. not noticing any pattern or time of faye. Did have a diagnosis in 2016 for adhd and started adderall currently not taking. Continue .05 estradiol patch refill in 30 daysweight gain of 30 pounds, goal weight of 145, over 30 bmi, insurance plan does not cover any weight loss meds would like to order semaglutid e compounded today. Has lab orders from primary will draw this month and upload to chart. no history of abnormals with any screening labs to kidney, liver, no family history thyroid cancers, no personal history pancreatit is. Genitourin rafi syndrome of menopause [id number] N95.8 continue vagifem tab twice weekly Screening for malignant neoplasm of breast [id number] Z12.39 - Ordered a screening mammogram for the patient due to her age and menopausal status.- The patient is encouraged to schedule and complete the mammogram at [facility]. Attention deficit hyperactivity disorder [id number] F90.9 - The patient has a previous diagnosis of ADHD and reports continued cognitive issues.- Referred the patient to [facility] for cognitive testing and further evaluation of her ADHD symptoms.- The patient is encouraged to follow up with the neuropsych ologist and communicat e any changes or concerns. Essential hypertension [id number] I10 - Patient is currently taking Metoprolol for essential hypertensi on under care of pcp Hyperlipidemia 36663337 E78.5 - The patient has a history of hyperlipid emia.- Ordered blood work to monitor the patient's lipid profile.- The patient is encouraged to maintain a healthy diet and lifestyle to manage her cholestero l levels. Polycystic ovary syndrome [id number] E28.2 did have fertility treatment for second child Unintentio nal weight gain [id number] 81044 R63.5 - The patient reports a weight gain of 30 pounds.- Discussed the option of using a compounded semaglutid e from [email or web address] to aid in weight loss.- Prescribed the medication and scheduled a follow-up appointmen t in a month to monitor the patient's progress and adjust the treatment plan as necessary. - Patient has gained weight rapidly, possibly due to menopause and a drop in estrogen levels causing insulin resistance .- Ordered blood labs including a complete metabolic panel, thyroid screen, and hemoglobin A1c to assess the patient's overall health and glucose metabolism .- Discussed potential weight loss medication s such as Ozempic and Metformin, but patient's insurance does not cover these.- Provided dietary and exercise recommenda tions to aid in weight loss, including the rule of a hundred (over 100 grams of protein, less than 100 grams of carbs a day, and 100 ounces of water a day), and regular weight training.- Will consider prescribin g low-dose Wellbutrin to aid in weight loss as it is not contraindi cated to use with current rx fluoxetine . discussed with patient including reasons to d/c (anxiety). Cognitive deficit in communication skills [id number] 99585 R41.841 - The patient reports difficulty in conversati on, including trouble finding words and finishing sentences. - Referred the patient to [facility] for cognitive testing and further evaluation of her cognitive communicat ion deficit.- The patient is encouraged to follow up with the neuropsych ologist and communicat e any changes or concerns. Weight gain 6760075 R63. 5 [id number] Katalina Pizarro MD Main Office [address] [place] [address] 08/28/2023 12:00:30 08/29/2023 04:47:03 Menopausal symptom 17776475 N95.1 - Patient is currently on HRT patch and progestero ne at night, which have been effective in managing her menopausal symptoms.- She reports feeling more clear-head ed and overall well-being has improved.- Will continue current HRT regimen as it appears to be effective and well-chas ated. - The patient's menopausal symptoms, including breast soreness and insomnia, have been managed with hormone replacemen t therapy.- The breast soreness has decreased and the patient reports improved sleep quality, which suggests the therapy is effective. - Will continue the current hormone replacemen t therapy regimen and monitor for any changes in symptoms.- Scheduled a follow-up appointmen t in December to reassess the effectiven ess of the treatment. - Patient's recent onset of breast soreness is likely due to the estrogen dose in her hormone replacemen t therapy (HRT).- Advised the patient to monitor the symptom and report if it does not resolve within the next couple of weeks.- If the symptom persists, the plan is to reduce the estrogen dose to 0.0375.- Patient's improved sleep pattern is a positive indication of the effectiven ess of the HRT. Earline patient , with no cycle r/t using eluryng. did have hot flashes and night sweats when not using in late 40's. Experienci ng vaginal dryness although not painful sex.: breast soreness started in the last week.is frustrated with weight gain - overnight 30 pounds in the last year. Patient is a 52 year old female presenting with concerns about recent symptoms including dry eyes, weight gain, and breast soreness since starting hormonal replacemen t therapy. Is reporting better and deeper sleep, and is sleeping through the night.07/03 02/22: breast soreness did go away and now one month later it has returned but less so. The dry eyes have resolved. Sleeping better than ever in her life. Despite this notices continued cognitive issues -- can see a word but she cannot say it -- this is disruptive at work. sometimes loses the thread mid sentence The other day put a qtip in her nose instead of her ear. will call a fork a spoon for example. not noticing any pattern or time of faye. Did have a diagnosis in 2016 for adhd and started adderall currently not taking. Continue .05 estradiol patch refill in 30 daysweight gain of 30 pounds, goal weight of 145, over 30 bmi, insurance plan does not cover any weight loss meds would like to order semaglutid e compounded today. Has lab orders from primary will draw this month and upload to chart. no history of abnormals with any screening labs to kidney, liver, no family history thyroid cancers, no personal history pancreatit is.08/28 feels more clear headed, sleeping well. Reports shed of uterine lining -- has been over three months since starting E2 transderma l/ oral P. After pcp lab draw with elevated liver enzymes, had u/s and then an MRI of liver. Cysts/jason ngiomas? otherwise negative study. Does have an order for repeat CMP will draw this week and with this result we will consult [facility] senior medical team. Reports starting MHT is only new event in time period and is absolutely not wanting to d/c.Meanwh ile, did start compounded semaglutid e (PCP is aware and had no objections ). Essential hypertension [id number] I10 - Patient is currently taking Metoprolol for essential hypertensi on under care of pcp Genitourin rafi syndrome of menopause [id number] 2600052 N95.8 continue vagifem tab twice weekly Liver enzy mes level above reference range 332868326 R74.01 - Recent blood tests showed a significan t increase in AST and ALT levels, prompting further investigat ion with ultrasound and MRI.- Imaging studies revealed benign liver cysts but no evidence of fatty liver or other abnormalit ies.- Plan to repeat blood tests and review results with senior team to determine if HRT could be contributi ng to elevated liver enzymes.- Patient was advised to report any changes in stool, intractabl e nausea, or other concerning symptoms. Hyperlipidemia 51214379 E78.5 - The patient has a history of hyperlipid emia.- Ordered blood work to monitor the patient's lipid profile.- The patient is encouraged to maintain a healthy diet and lifestyle to manage her cholestero l levels. Body mass index 30+ - obesity 532855636 Z68.30 - Patient recently started semaglutid e, a medication that can aid in weight management .- She reported some GI side effects and nausea, which are common when starting this medication .- Patient also noted an increase in energy since starting semaglutid e.- Plan to continue semaglutid e and monitor for any adverse effects or changes in weight. [id number] Katalina Pizarro MD Main Office [address] [place] [address] 09/19/2023 11:07:17 09/24/2023 05:42:12 Body mass index 30+ - obesity 597494925 Z68.30 - Patient is currently on semaglutid e injections for weight management .- Completed four injections of the starting dose (10 units) and will titrate up to 20 units.- Refilled prescripti on from [facility].- Goal is to lose a half a pound to a pound per week.- Follow up appointmen t scheduled for October 23 at 11am to assess progress. - Patient recently started semaglutid e, a medication that can aid in weight management .- She reported some GI side effects and nausea, which are common when starting this medication .- Patient also noted an increase in energy since starting semaglutid e.- Plan to continue semaglutid e and monitor for any adverse effects or changes in weight. Abnormal weight gain 161 707783 R63.5 - Addressed with the use of semaglutid e injections for weight management .- Titration to 20 units after completing four injections of the starting dose (10 units).- Monitoring weight loss progress and adjusting treatment as needed. Obesity 235753621 E66.8 - Managed with semaglutid e injections for weight management .- Titration to 20 units after completing four injections of the starting dose (10 units).- Monitoring weight loss progress and adjusting treatment as needed. Difficulty sleeping 2563 91215 Z72.820 addressing with [facility] Health edu cation given [id number] Z71.9 - Discussed the importance of maintainin g a balanced diet, focusing on protein, fruits, vegetables , and water intake while on semaglutid e.- Advised to watch out for diarrhea and constipati on with the increased dose of semaglutid e.- Informed patient to monitor labs in October, including kidney, liver, and pancreas function. Menopausal symptom 29863 002 N95.1 - Patient is currently on HRT patch and progestero ne at night, which have been effective in managing her menopausal symptoms.- She reports feeling more clear-head ed and overall well-being has improved.- Will continue current HRT regimen as it appears to be effective and well-chas ated. - The patient's menopausal symptoms, including breast soreness and insomnia, have been managed with hormone replacemen t therapy.- The breast soreness has decreased and the patient reports improved sleep quality, which suggests the therapy is effective. - Will continue the current hormone replacemen t therapy regimen and monitor for any changes in symptoms.- [facility] effect[facility] ess of the treatment. - Patient's recent onset of breast soreness is likely due to the estrogen dose in her hormone replacemen t therapy (HRT).- Advised the patient to monitor the symptom and report if it does not resolve within the next couple of weeks.- If the symptom persists, the plan is to reduce the estrogen dose to 0.0375.- Patient's improved sleep pattern is a positive indication of the effectiven ess of the HRT. Earline patient , with no cycle r/t using eluryng. did have hot flashes and night sweats when not using in late 's. Experienci ng vaginal dryness although not painful sex.: breast soreness started in the last week.is frustrated with weight gain - overnight 30 pounds in the last year. Patient is a 52 year old female presenting with concerns about recent symptoms including dry eyes, weight gain, and breast soreness since starting hormonal replacemen t therapy. Is reporting better and deeper sleep, and is sleeping through the night.07/03 02/22: breast soreness did go away and now one month later it has returned but less so. The dry eyes have resolved. Sleeping better than ever in her life. Despite this notices continued cognitive issues -- can see a word but she cannot say it -- this is disruptive at work. sometimes loses the thread mid sentence The other day put a qtip in her nose instead of her ear. will call a fork a spoon for example. not noticing any pattern or time of faye. Did have a diagnosis in 2015 for adhd and started adderall currently not taking. Continue .05 estradiol patch refill in 30 daysweight gain of 30 pounds, goal weight of 145, over 30 bmi, insurance plan does not cover any weight loss meds would like to order semaglutid e compounded today. Has lab orders from primary will draw this month and upload to chart. no history of abnormals with any screening labs to kidney, liver, no family history thyroid cancers, no personal history pancreatit is.08/28 feels more clear headed, sleeping well. Reports shed of uterine lining -- has been over three months since starting E2 transderma l/ oral P. After pcp lab draw with elevated liver enzymes, had u/s and then an MRI of liver. Cysts/jason ngiomas? otherwise negative study. Does have an order for repeat CMP will draw this week and with this result we will consult [facility] senior medical team. Reports starting MHT is only new event in time period and is absolutely not wanting to d/c.Meanwh ile, did start compounded semaglutid e (PCP is aware and had no objections ). Liver enzy mes level above reference range [id number] R74.01 - Recent blood tests showed a significan t increase in AST and ALT levels, prompting further investigat ion with ultrasound and MRI.- Imaging studies revealed benign liver cysts but no evidence of fatty liver or other abnormalit ies.- Plan to repeat blood tests and review results with senior team to determine if HRT could be contributi ng to elevated liver enzymes.- Patient was advised to report any changes in stool, intractabl e nausea, or other concerning symptoms.R EPEAT SERUM TESTING ALL WNL PCP REVIEWED [id number] Katalina Pizarro MD Main Office [address] [place] [address] 10/24/2023 11:10:14 10/29/2023 03:50:53 Body mass index 30+ - obesity 619852103 Z68.30 - Significan t weight loss of 19 pounds noted, with current BMI at 26.9.- Patient has been using semaglutid e injections at a dose of 0.4 mg weekly, with positive results and minimal side effects.- Encouraged patient to increase caloric intake, emphasizin g protein, fruits, and vegetables , and consider adding a multivitam in and green supplement .- Advised to incorporat e weight lifting exercises into her routine to preserve muscle mass.- Will re-evaluat e weight loss progress in the next appointmen t. - Patient is currently on semaglutid e injections for weight management .- Completed four injections of the starting dose (10 units) and will titrate up to 20 units.- Refilled prescripti on from [facility].- Goal is to lose a half a pound to a pound per week.- Follow up appointmen t scheduled for Sunday, October 23 at 11am to assess progress. - Patient recently started semaglutid e, a medication that can aid in weight management .- She reported some GI side effects and nausea, which are common when starting this medication .- Patient also noted an increase in energy since starting semaglutid e.- Plan to continue semaglutid e and monitor for any adverse effects or changes in weight. Obesity 583684067 E66.8 - Treatment not discussed, please review. - Managed with semaglutid e injections for weight management .- Titration to 20 units after completing four injections of the starting dose (10 units).- Monitoring weight loss progress and adjusting treatment as needed. Fatigue 50973861 R53.83 - Discussed the importance of maintainin g a balanced diet and exercise routine during weight loss.- Encouraged patient to monitor her symptoms and communicat e any concerns or changes. Difficulty sleeping 1331 93298 Z72.820 - Addressed in the obesity management plan above. addressing with [facility] Health edu cation given [id number] Z71.9 - Patient reports three recent episodes of three-day vaginal bleeding.- Ordered a pelvic ultrasound (transabdo lelo and transvagin al) at [facility] in [place] to investigat e the cause of bleeding.- Based on ultrasound results, will consider referral to gynecology if necessary. - Discussed the importance of maintainin g a balanced diet, focusing on protein, fruits, vegetables , and water intake while on semaglutid e.- Advised to watch out for diarrhea and constipati on with the increased dose of semaglutid e.- Informed patient to monitor labs in October, including kidney, liver, and pancreas function. Weight gain 2681919 R63. 5 see above -- continue to keep lowest effective dose aiming for 1 to 2 pound weekly weight loss Postmenopa usal bleeding 64285695 N95.0 [id number] Marina Duff NP Main Office [address] [place] [address] 01/21/2024 12:05:49 01/22/2024 15:12:55 Menopausal symptom 72824869 N95.1 - Patient is currently on hormone therapy with a transderma l patch and reports no problems or adverse effects.- No need for hormone level testing as treatment is based on symptom management and current hormone therapy is effective in managing symptoms.- Refill current levels of prescripti on. Earline patient , with no cycle r/t using eluryng. did have hot flashes and night sweats when not using in late 40's. Experienci ng vaginal dryness although not painful sex.: breast soreness started in the last week.is frustrated with weight gain - overnight 30 pounds in the last year. Patient is a 52 year old female presenting with concerns about recent symptoms including dry eyes, weight gain, and breast soreness since starting hormonal replacemen t therapy. Is reporting better and deeper sleep, and is sleeping through the night.07/03 02/22: breast soreness did go away and now one month later it has returned but less so. The dry eyes have resolved. Sleeping better than ever in her life. Despite this notices continued cognitive issues -- can see a word but she cannot say it -- this is disruptive at work. sometimes loses the thread mid sentence The other day put a qtip in her nose instead of her ear. will call a fork a spoon for example. not noticing any pattern or time of faye. Did have a diagnosis in 2016 for adhd and started adderall currently not taking. Continue .05 estradiol patch refill in 30 daysweight gain of 30 pounds, goal weight of 145, over 30 bmi, insurance plan does not cover any weight loss meds would like to order semaglutid e compounded today. Has lab orders from primary will draw this month and upload to chart. no history of abnormals with any screening labs to kidney, liver, no family history thyroid cancers, no personal history pancreatit is.08/28 feels more clear headed, sleeping well. Reports shed of uterine lining -- has been over three months since starting E2 transderma l/ oral P. After pcp lab draw with elevated liver enzymes, had u/s and then an MRI of liver. Cysts/jason ngiomas? otherwise negative study. Does have an order for repeat CMP will draw this week and with this result we will consult [facility] senior medical team. Reports starting MHT is only new event in time period and is absolutely not wanting to d/c.Meanwh ile, did start compounded semaglutid e (PCP is aware and had no objections ). Abnormal weight gain 161 [id number] R63.5 - Patient is on a compoundin g semaglutid e regimen, currently at 15 units, which has helped maintain a stable weight of 152 lbs, reflecting a 5 lb weight loss since the last documentat ion in September.- BMI is 26.1, and patient is satisfied with the current weight.- Encouraged patient to consider increasing muscle mass to aid in weight management and potentiall y allow for a future reduction or discontinu ation of semaglutid e.- No changes to the current semaglutid e regimen are recommende d at this time. Postmenopa usal bleeding [id number] N95.0 - Patient experience s monthly bleeding episodes, described as light and lasting for 3 days, with no cramping prior to the onset.- Bleeding is bright red and managed with a light pad.- A transvagin al ultrasound was ordered in September to investigat e the cause of the bleeding, but the patient has not yet completed the test.- Instructed patient to schedule and complete the ultrasound , preferably 10 days after the start of the last bleeding episode, to help determine the cause of the bleeding.- Follow-up appointmen t scheduled for 6 weeks to discuss the ultrasound results. [id number] Marina Duff NP Main Office [address] [place] [address] 05/21/2024 11:12:32 05/23/2024 15:38:15 Abnormal weight gain [id number] R63.5 - Patient currently at 140 pounds with a BMI of 24, which is within the normal range.- Patient has been using semaglutid e for weight management and is currently using a slightly lower dose than prescribed for maintenanc e.- Discussed the option of extending the interval between doses to every 10 days for maintenanc e, ensuring not to exceed 2 weeks between doses to avoid the need to re-acclima te.- Educated patient on the importance of monitoring the concentrat ion of semaglutid e solution with each new vial to avoid dosing errors.- Patient understand s and agrees with the plan to continue semaglutid e at the current dose and interval.- Follow-up appointmen t scheduled for July 15 at 11:30 AM. There is a refill on patient's profile to activate with [facility] at current dosing Body mass index 30+ - obesity [id number] Z68.30 - Patient's current BMI is 24, indicating successful weight management .- Continued use of semaglutid e has been effective in maintainin g weight loss.- Discussed the benefits of semaglutid e beyond weight loss, including potential cardiovasc ular benefits as noted by a cardiologi st.- Patient advised to continue current lifestyle and medication regimen.- Follow-up appointmen t scheduled for July 15 at 11:30 AM. Liver enzy mes level above reference range [id number] R74.01 - Recent blood tests showed a significan t increase in AST and ALT levels, prompting further investigat ion with ultrasound and MRI.- Imaging studies revealed benign liver cysts but no evidence of fatty liver or other abnormalit ies.- Plan to repeat blood tests and review results with senior team to determine if HRT could be contributi ng to elevated liver enzymes.- Patient was advised to report any changes in stool, intractabl e nausea, or other concerning symptoms.R EPEAT SERUM TESTING ALL WNL PCP REVIEWED consider retesting July 2024 [id number] Marina Duff NP Main Office [address] [place] [address] 07/15/2024 11:39:57 07/16/2024 04:09:10 Difficulty sleeping [id number] Z72.820 addressing with [facility] edu cation given [id number] Z71.9 - Educated patient on the importance of careful medication administra tion, especially with compounded semaglutid e.- Discussed the importance of verifying dosages and using the tamika system to avoid medication errors.- Advised patient to take pictures of medication bottles for reference and to double-wale ck dosages with a friend or healthcare provider.- Patient understand s and agrees with the education provided. Weight gain [id number] R63. 5 - Patient's weight is stable at 141-142 lbs, which is satisfacto ry.- Currently on compounded semaglutid e from [facility], titrated down to 0.75 mg (25-30 units in a 1 cc needle).- Patient reports significan t reduction in appetite and food cravings, contributi ng to weight maintenanc e.- Refill ordered for compounded semaglutid e from [facility] at the same concentrat ion.- Follow-up appointmen t scheduled for September 02 at 11:30 AM Central Time. see above -- continue to keep lowest effective dose aiming for 1 to 2 pound weekly weight loss Menopausal symptom [id number] N95.1 - Patient is transition ing to a different OBGYN for management of menopausal symptoms.- No specific treatment or medication changes discussed during this visit.- Advised patient to reach out if interim support is needed. Earline patient , with no cycle r/t using eluryng. did have hot flashes and night sweats when not using in late 40's. Experienci ng vaginal dryness although not painful sex.: breast soreness started in the last week.is frustrated with weight gain - overnight 30 pounds in the last year. Patient is a 52 year old female presenting with concerns about recent symptoms including dry eyes, weight gain, and breast soreness since starting hormonal replacemen t therapy. Is reporting better and deeper sleep, and is sleeping through the night.07/03 02/22: breast soreness did go away and now one month later it has returned but less so. The dry eyes have resolved. Sleeping better than ever in her life. Despite this notices continued cognitive issues -- can see a word but she cannot say it -- this is disruptive at work. sometimes loses the thread mid sentence The other day put a qtip in her nose instead of her ear. will call a fork a spoon for example. not noticing any pattern or time of faye. Did have a diagnosis in 2016 for adhd and started adderall currently not taking. Continue .05 estradiol patch refill in 30 daysweight gain of 30 pounds, goal weight of 145, over 30 bmi, insurance plan does not cover any weight loss meds would like to order semaglutid e compounded today. Has lab orders from primary will draw this month and upload to chart. no history of abnormals with any screening labs to kidney, liver, no family history thyroid cancers, no personal history pancreatit is.08/28 feels more clear headed, sleeping well. Reports shed of uterine lining -- has been over three months since starting E2 transderma l/ oral P. After pcp lab draw with elevated liver enzymes, had u/s and then an MRI of liver. Cysts/jason ngiomas? otherwise negative study. Does have an order for repeat CMP will draw this week and with this result we will consult [facility] senior medical team. Reports starting MHT is only new event in time period and is absolutely not wanting to d/c.Meanwh ile, did start compounded semaglutid e (PCP is aware and had no objections ). [id number] Marina Duff NP Main Office [address] [place] [address] 09/02/2024 11:41:45 09/03/2024 04:10:54 Health education given [id number] Z71.9 - Provided detailed education on weight maintenanc e strategies , including the importance of regular self-weigh ing, daily exercise, and healthy eating habits.- Discussed the potential future availabili ty of oral semaglutid e for maintenanc e.- Informed patient about the safety and benefits of menopausal hormone therapy, tab magana a recent article from the [place] [employer]. Abnormal weight gain 161 [id number] R63.5 - Patient is currently on a maintenanc e dose of semaglutid e, 0.75 mg (0.3 mL) administer ed via insulin pen every 6 weeks.- Weight is stable around 140-142 lbs, as documented on July 15 at 141 lbs.- Educated patient on the importance of frequent self-weigh ing, daily exercise for at least 30 minutes, eating breakfast daily, and limiting television watching to less than 30 minutes per day for weight maintenanc e.- Ordered a refill of semaglutid e with an additional refill to be activated as needed.- Follow-up appointmen t scheduled for November 03 at 12:00 PM to monitor weight and medication efficacy. Menopausal symptom 52492 [id number] N95.1 - Patient is on estrogen and progestero ne therapy, which has contribute d to weight loss and improved sleep.- Discussed the benefits and safety of menopausal hormone therapy.- No changes to current hormone therapy regimen. - Patient is transition ing to a different OBGYN for management of menopausal symptoms.- No specific treatment or medication changes discussed during this visit.- Advised patient to reach out if interim support is needed. Earline patient , with no cycle r/t using eluryng. did have hot flashes and night sweats when not using in late 40's. Experienci ng vaginal dryness although not painful sex.: breast soreness started in the last week.is frustrated with weight gain - overnight 30 pounds in the last year. Patient is a 52 year old female presenting with concerns about recent symptoms including dry eyes, weight gain, and breast soreness since starting hormonal replacemen t therapy. Is reporting better and deeper sleep, and is sleeping through the night.07/03 02/22: breast soreness did go away and now one month later it has returned but less so. The dry eyes have resolved. Sleeping better than ever in her life. Despite this notices continued cognitive issues -- can see a word but she cannot say it -- this is disruptive at work. sometimes loses the thread mid sentence The other day put a qtip in her nose instead of her ear. will call a fork a spoon for example. not noticing any pattern or time of faye. Did have a diagnosis in 2016 for adhd and started adderall currently not taking. Continue .05 estradiol patch refill in 30 daysweight gain of 30 pounds, goal weight of 145, over 30 bmi, insurance plan does not cover any weight loss meds would like to order semaglutid e compounded today. Has lab orders from primary will draw this month and upload to chart. no history of abnormals with any screening labs to kidney, liver, no family history thyroid cancers, no personal history pancreatit is.08/28 feels more clear headed, sleeping well. Reports shed of uterine lining -- has been over three months since starting E2 transderma l/ oral P. After pcp lab draw with elevated liver enzymes, had u/s and then an MRI of liver. Cysts/jason ngiomas? otherwise negative study. Does have an order for repeat CMP will draw this week and with this result we will consult [facility] senior medical team. Reports starting MHT is only new event in time period and is absolutely not wanting to d/c.Meanwh ile, did start compounded semaglutid e (PCP is aware and had no objections ). Weight gain [id number] R63. 5 - Patient's weight is stable at 141-142 lbs, which is satisfacto ry.- Currently on compounded semaglutid e from [facility], titrated down to 0.75 mg (25-30 units in a 1 cc needle).- Patient reports significan t reduction in appetite and food cravings, contributi ng to weight maintenanc e.- Refill ordered for compounded semaglutid e from [facility] at the same concentrat ion.- Follow-up appointmen t scheduled for September 02 at 11:30 AM Central Time. see above -- continue to keep lowest effective dose aiming for 1 to 2 pound weekly weight loss Health Concerns Section Related Observation LastModified by Organization Detai ls LastModified Time None Recorded Concern Status LastModified by Organization Details LastModified Time None Recorded Advance Directives Directive None Recorded Payers Encounter Date Sequence Insurance Name Policy Number Policy Fair Covered Member ID Fair Member ID Guarantor Name 10/24/2023 1 [facility] [id number] [employer] [id number] [employer] 01/21/2024 1 [employer] [id number] [employer] [id number] [employer] 05/21/2024 1 [employer] [id number] [employer] [id number] [employer] 07/15/2024 1 [facility] [id number] [employer] [id number] [employer] 09/02/2024 1 R [id number] [employer] [id number] [employer] Notes Date Note Type Note Provider Name and Address Organization Details Recorded Time 10/24/2023 text/html Virtual Visit AttestationModality: VideoProvider Location: HomePatient State: {{AL AK AZ AR CA CO CT DE DC FL GA HI ID IL* [place] ROD[place] JUSTIN MD ME WY MN MS MO MT NE N V NH NJ NM NY NC ND OH OK OR PA RI SC SD TN TX UT VT VA WA WV WI W Y}}[{{ * }}]I have obtained consent from the patient for use of autoscribe. Preventive Care Date of LastMammogram: She is currently using {{}} for contraception. Highest BMI: {{}}Starting weight: {{}} BMI: {{}}Current weight: {{ 157#}} BMI: {{}}Goal weight: {{}} Review of nutrition, exercise, sleep, and stress includes: 10/23 -- excellent weight loss with some GI side effects with first 2 injections -- was very cautious to increase to .5 mg so did a 'correction' dose. Gets full fast and stops eating. Is emphasizing protein and doing a protein shake for lunch. Discussion today of adding fruit and vegetable ( multi vitamin)has been doing twice a week walking and weekend walks. 48 minute brisk walks.has had 3 monthly 'periods' 4 weeks apart. Patient is a 53 year old female presenting for follow-up on weight management and recent episodes of postmenopausal bleeding. Weight Management:- Patient reports a significant weight loss of 19 pounds since the last visit, bringing her current weight to 157 pounds and her BMI to 26.9.- She attributes this weight loss to the use of semaglutide injections, which she has been self-administering weekly at a dose of 0.5 milligrams.- She initially experienced gastrointestinal side effects with the first two shots but reports no current side effects.- She notes a change in her eating habits, feeling full quickly and eating less as a result.- Her diet primarily consists of protein-rich foods such as scrambled eggs for breakfast, a protein shake for lunch, and meat or fish for dinner. She acknowledges the need to increase her intake of fruits and vegetables.- She is also engaging in regular physical activity, walking twice a week for about 48 minutes at a time at a brisk pace. Postmenopausal Bleeding:- Despite being postmenopausal, the patient reports experiencing a three-day vaginal bleed every month for the past three months, always starting on the third Sunday of the month.- She describes the bleeding as similar to a period.- She is scheduled for an ultrasound at [facility] to investigate the cause of this bleeding. Recent Illness:- Patient recently recovered from the flu, which she contracted a week ago. She experienced a high fever of 103 degrees and was bedridden for five days.- She reports residual symptoms from the illness but is overall feeling better. Exercise Routine:- In addition to her walking routine, the patient acknowledges the need to incorporate weight lifting into her exercise regimen to prevent muscle loss associated with rapid weight loss. Dietary Supplements:- The patient is considering adding a multivitamin or green supplement to her diet to ensure adequate nutrient intake given her reduced food intake due to the semaglutide injections. Recent Screenings:- Patient had a recent mammogram, the results of which were normal. PMHx:- Flu (Last week) Current Meds:- Semi-glutide 0.5 mg weekly Social Hx:- Physical activity: Walks twice a week and on weekends- Diet habits: High protein diet, needs to increase fruit [place] [address] [place], [address], [facility] 10/28/2023 15:07:22 01/21/2024 text/html Virtual Visit AttestationModality: VideoProvider Location: HomePatient State: {{AL AK AZ AR CA CO CT DE DC FL GA HI ID IL* IN [place] RODNEY JUSTIN MD ME WY MN MS MO MT NE N V NH NJ NM NY NC ND OH OK OR PA RI SC SD TN TX UT VT VA WA WV WI W Y}}[{{ * }}]I have obtained consent from the patient for use of autoscribe. Preventive Care Date of LastMammogram: She is currently using {{}} for contraception.01/20 -- compounded semaglutide -- staying at low dose and maintaining weight at 152. Her previous preProzac weight was 144. Currently on .05 mg patch and nightly progesterone. Continues to have a bleed monthly -- lasts for 3 days and needs a light pad -- bright red. no cramping before it starts.has not yet had the u/s we ordered late september as had questions about timing, but [place] [address] [place], [address], [facility] 01/21/2024 16:57:10 05/21/2024 text/html Virtual Visit AttestationModality: VideoProvider Location: Home Patient Location: Home Patient State: {{SUZETTE RATLIFF AR CA CO CT DE DC FL GA HI ID IL* IN IA TN OLIMPIA SMITH WY MN MS MO MT NE N V [facility] OH OK OR PA RI SC SD TN TX [place] [facility] [place] W Y}}compounded sema -- using slightly less than prescribed weekly dose for maintenance, currently at 140# bmi 24. Pleased with results, continues to emphasize protein and fiber (veg) in diet, and has energy to [place] [address] [place], [address], [facility] 05/21/2024 12:25:53 07/15/2024 text/html Virtual Visit AttestationModality: VideoProvider Location: Home Patient Location: Home Patient State: {{SUZETTE RATLIFF AR CA CO CT DE DC FL GA HI ID IL* IN IA TN OLIMPIA SMITH WY MN MS MO MT NE N V [facility] OH OK OR PA RI SC SD TN TX [place] [facility] [place] Y}} Highest BMI: {{}}Starting weight: {{}} BMI: {{}}Current weight: {{}} BMI: {{}}Goal weight: {{}} Review of nutrition, exercise, sleep, and stress includes:compounded sema -- feels really good at this maintenance. feels that if she loses any more she would be likely to just gain that back. Has titrated down from 40 units (1 mg) to 25 to 30 units so essentially .6 to .75 mg of compounded semaglutide [facility] Is very happy to not have the food noise although still [place] [address] [place], [address], [facility] 07/15/2024 16:03:36 09/02/2024 text/html Virtual Visit AttestationModality: VideoProvider Location: Home Patient Location: Home Patient State: {{AL AK AZ AR CA CO CT DE DC FL GA HI ID IL* IN [place] RODNEY JUSTIN MD ME WY MN MS MO MT NE N V NH NJ NM NY NC ND OH OK OR PA RI SC SD TN TX UT VT VA WA WV WI W Y}} Highest BMI: {{}}Starting weight: {{}} BMI: {{}}Current weight: {{ 140#}} BMI: {{}}Goal weight: {{}} Review of nutrition, exercise, sleep, and stress includes:has reduced the semaglutide to .3 on the syringe (.75 mg) and is therefore is getting 6 weeks out of the vial. Is experiencing a decrease in food noise [place] [address] [place], [address], [facility] 09/02/2024 15:52:18 OBGyn Episode No OBEpisode recorded.
--- OUTSIDE RECORDS SUMMARY | 2024-09-19 07:43 | XMS_ITS | Referral Summary ---
Author Organization [facility] [address] [facility] lto Address [address] [place] [address] Care Team Providers Care Engine Hostler Name Role Phone Unknown, Notinfile Primary Care Provider Unavail able Encounters Date Type Department Care Team Description 08/02/2024 4:15 PM BUILDING CONSTRUCTION ENGINEER Office Visit [facility] [place] [address] [address] Love Du, ORTHODONTIC TREATMENT COORDINATOR Head congestion (Primary Dx); Acute cough from Last 3 Months Allergies Active Allergy Reactions Criticality Noted Date Comments Levofloxacin Nausea only,Vomiting Reaction: Nausea, Vomiting, Medications ALPRAZolam (XANAX) 0.25 mg tablet Take by mouth 3 (three) times a day as needed 07/31/2024 Active buPROPion XL (WELLBUTRIN XL) 150 mg 24 hr tablet Take 1 tablet (150 mg total) by mouth daily Active Active Problems Problem Noted Date Diagnosed Date Depression 11/15/2013 Overview (10/06/2016): DEPRESSIVE DISORDER NEC Social History Tobacco Use Types Packs/Day Years Used Date Smoking Tobacco: Never Assessed Alcohol Use Standard Drinks/Week Comments Yes 0 (1 standard drink = 0.6 oz pur e alcohol) Comments Unknown Sex and Gender Information Value Date Recorded Sex Assigned at Not on file Legal Sex Female 12:22 AM BUILDING CONSTRUCTION ENGINEER Gender Identity Not on file Sexual Orientation Not on file Last Filed Vital Signs Vital Sign Reading Time Taken Comments Blood Pressure 122/72 08/02/2024 4:04 PM BUILDING CONSTRUCTION ENGINEER Pulse 84 08/02/2024 4:04 PM BUILDING CONSTRUCTION ENGINEER Temperature 37 C (98.6 F) 08/02/2024 4:04 PM BUILDING CONSTRUCTION ENGINEER Respiratory Rate 18 08/02/2024 4:04 PM BUILDING CONSTRUCTION ENGINEER Oxygen Saturation 99% 08/02/2024 4:04 PM BUILDING CONSTRUCTION ENGINEER Inhaled Oxygen Concentration - - Weight 65.6 kg (144 lb 9.6 oz) 08/02/2024 4:04 P M BUILDING CONSTRUCTION ENGINEER Height 162.6 cm (5' 4 ) 08/02/2024 4:04 PM BUILDING CONSTRUCTION ENGINEER Body Mass Index 24.82 08/02/2024 4:04 PM BUILDING CONSTRUCTION ENGINEER Plan of Treatment Not on file Procedures Procedure Name Priority Date/Time Associated Diagnosis Comments POC INFLUENZA A/B, COVID-19 ANTIGEN Routine 08/02/2024 4:34 PM BUILDING CONSTRUCTION ENGINEER Acute cough from Last 3 Months Results * POC Influenza A/B, COVID-19 antigen (08/02/2024 4:34 PM BUILDING CONSTRUCTION ENGINEER) Influenza A Ag, POC Negative Negative [facility] INGRID Influenza B Ag, POC Negative Negative [facility] COVID-19 Ag POC Presumptive Negative Presumptive Negative, Invalid [facility] Nasal 08/02/2024 4:34 PM BUILDING CONSTRUCTION ENGINEER us Love Du NP POINT OF CARE TEST ORDERABLES Final Result [facility] [address] [place] [address], [facility] from Last 3 Months Insurance [facility] Care Teams Engine Hostler Relationship Specialty Start Date End Date Unknown, Notinfile PCP - General 08/02/24
--- OUTSIDE RECORDS SUMMARY | 2024-09-19 07:43 | XMS_ITS | Clinical Summary ---
Author Organization [address] lto Address [address] [place] [address] Care Team Providers Care Simulation Engineer Name Role Phone Unknown, Notinfile Primary Care Provider Unavail able Allergies Active Allergy Reactions Criticality Noted Date [...] Depression 11/15/2013 Overview (10/06/2016): DEPRESSIVE DISORDER NEC Encounters Date Type Department Care Team Description 08/02/2024 4:15 PM GENERAL SCRAP WORKER Office Visit [facility] at [address] [place] [address] Love Du, SHAGGY Head congestion (Primary Dx); Acute cough from Last 3 Months Family History Medical History Relation Name Comments Coronary artery disease Father Wilfred nary artery disease; Melanoma Father Cancer -melanom a; Relation Name Status Comments Father Social History Tobacco Use Types Packs/Day Years Used Date Smoking Tobacco: Never Assessed Alcohol Use Standard Drinks/Week Comments Yes 0 (1 standard drink = 0.6 oz pur e alcohol) Comments Unknown Sex and Gender Information Value Date Recorded Sex Assigned at Not on file Legal Sex Female 12:22 AM GENERAL SCRAP WORKER Gender Identity Not on file Sexual Orientation Not on file Obstetrics History Last Filed Vital Signs Vital Sign Reading Time Taken Comments Blood Pressure 122/72 08/02/2024 4:04 PM GENERAL SCR[employer] WORKER Pulse 84 08/02/2024 4:04 PM GENERAL SCR[employer] WORKER Temperature 37 C (98.6 F) 08/02/2024 4:04 PM GENERAL SCRAP WORKER Respiratory Rate 18 08/02/2024 4:04 PM GENERAL SCRAP WORKER Oxygen Saturation 99% 08/02/2024 4:04 PM GENERAL SCRAP WORKER Inhaled Oxygen Concentration - - Weight 65.6 kg (144 lb 9.6 oz) 08/02/2024 4:04 P M GENERAL SCRAP WORKER Height 162.6 cm (5' 4 ) 08/02/2024 4:04 PM GENERAL SCRAP WORKER Body Mass Index 24.82 08/02/2024 4:04 PM GENERAL SCRAP WORKER Plan of Treatment Health Maintenance Due Date Last Done Comments Breast Cancer Screening-Mammogram 1969 Cervical Cancer Screening 1969 Colon Cancer Screening-Colonoscopy 1969 Depression Screening 1969 Hepatitis C Screening 1969 DTaP/Tdap/Td Vaccine (1 - Tdap) 1980 Hepatitis B Screening 1987 Regular Well Visit/Exam 18-64 1987 Zoster Vaccine (1 of 2) 2019 Covid-19 Vaccine (4 - 2023-2 5 season) 2024 04/08/2021, 07/13/2020, 06/22/2020 Influenza Vaccine Completed 05/13/2024, 05/15/2023 Pneumococcal vaccine <65 Aged Out No longer eligible based on patient's age to complete this topic Procedures Procedure Name Priority Date/Time Associated Diagnosis Comments POC INFLUENZA A/B, COVID-19 ANTIGEN Routine 08/02/2024 4:34 PM GENERAL SCRAP WORKER Acute cough from Last 3 Months Results * POC Influenza A/B, COVID-19 antigen (08/02/2024 4:34 PM GENERAL SCRAP WORKER) Influenza A Ag, POC Negative Negative [facility] Influenza B Ag, POC Negative Negative [facility] COVID-19 Ag POC Presumptive Negative Presumptive Negative, Invalid [facility] Nasal 08/02/2024 4:34 PM GENERAL SCRAP WORKER us Love Du NP POINT OF CARE TEST ORDERABLES Final Result [facility] [address] [place] [address], [facility] from Last 3 Months Insurance [facility] Care Teams Simulation Engineer Relationship Specialty Start Date End Date Unknown, Notinfile PCP - General 08/02/24
[2024-09-19 08:32] LABS: Alanine Aminotransferase 15 U/L (6-35); Albumin Level 4.4 g/dL (3.5-5.1); Alkaline Phosphatase 51 U/L (38-126); Anion Gap 5 mmol/L (4-12); Aspartate Amino Transferase 28 U/L (14-36); Blood Urea Nitrogen 13 mg/dL (7-17); Calcium 8.9 mg/dL (8.4-10.2); Carbon Dioxide 30 mmol/L (22-30); Chloride 102 mmol/L (98-107); Cholesterol 169 mg/dL (0-200); Estimated Glomerular Filt Rate > 60; Glucose 92 mg/dL (65-110); HDL Direct 71 mg/dL; Potassium 4.5 mmol/L (3.4-5.0); Sodium 137 mmol/L (137-145); Triglycerides 70 mg/dL (<150)
[2024-09-19 08:43] LABS: LDL Cholesterol Direct 69 mg/dL
[2024-09-19 09:50] LABS: Vitamin D 25 Hydroxy 39.1 ng/mL
== END 2024-09-19 07:35 | disposition home or self-care (01) ==
LOC: ANHLAB 07:39
PROVIDERS: PCP Family Medicine; Visit Provider Nurse Practitioner
DX: E78.5 Hyperlipidemia, unspecified (principal); I10 Essential (primary) hypertension; E55.9 Vitamin D deficiency, unspecified; F51.01 Primary insomnia
CPT/HCPCS: 36415; 80053; 80061; 82306; 84443

== ENCOUNTER 2025-01-23 07:57 | Outpatient (CLI) | payer OTHER, SELFPAY ==
--- OUTSIDE RECORDS SUMMARY | 2025-01-23 08:02 | XMS_ITS | Data Portability ---
Author Organization [facility] in Office Address [address] [place] [address] Assessment Encounter Date Assessment Date Assessment LastModified by Organization Details LastModified Time 05/21/2024 05/21/2024 I spent 25 minutes of oaph-wx-krtd counselling and care coordination time with the patient. This includes reviewing medical records (medical, surgical, family and social history); updating medication and allergy information in the electronic health record; and ordering labs, medications, and education materials to continue patient care. [email or web address] Not available 05/21/2024 12:24:22 07/15/2024 07/15/2024 I spent 30 minutes of pjmq-hv-asdj counselling and care coordination time with the patient. This includes reviewing medical records (medical, surgical, family and social history); updating medication and allergy information in the electronic health record; and ordering labs, medications, and education materials to continue patient care. [email or web address] Not available 07/15/2024 15:59:49 09/02/2024 09/02/2024 I spent 30 minutes of idke-fy-fyyf counselling and care coordination time with the patient. This includes reviewing medical records (medical, surgical, family and social history); updating medication and allergy information in the electronic health record; and ordering labs, medications, and education materials to continue patient care. [email or web address] Not available 09/02/2024 15:49:49 11/03/2024 11/03/2024 I spent 30 minutes of zrfj-an-larn counselling and care coordination time with the patient. This includes reviewing medical records (medical, surgical, family and social history); updating medication and allergy information in the electronic health record; and ordering labs, medications, and education materials to continue patient care. [email or web address] Not available 11/03/2024 21:11:00 12/30/2024 12/30/2024 I spent 30 minutes of ogjc-ve-fifj counselling and care coordination time with the patient. This includes reviewing medical records (medical, surgical, family and social history); updating medication and allergy information in the electronic health record; and ordering labs, medications, and education materials to continue patient care. [email or web address] Not available 12/30/2024 14:33:55 Plan of Treatment Reminders Order Date Submit Date Provider Last Modified By Organization Details Last Modified Time Details Appointments [id number] 2024 09:30A Ming Duff NP Not available Not available Not available Lab None recorded. Referral None recorded. Procedures None recorded. Surgeries None recorded. Imaging None recorded. Medication Orders Semagluti de [facility] 2024 025 [facility], [address], [place], [address], 11/03/2024 13:14:14 Semagluti de [facility] 2024 025 [facility], [address] [facility], [place], [address], 09/02/2024 15:51:53 Semagluti de [facility]I 2024 025 [facility], [address], [place], [address], 07/15/2024 12:50:11 Patient TargetsNo targets recorded. Patient Instructions Encounter Date Encounter Id Patient Instructions Last Modified By Organization Details Last Modified Time 05/21/2024 [id number] Any requested follow-up visits are listed below in the Plan of Care section. Go directly to the [facility] equipment planner at [email or web address] to book a time. [email or web address] Not available 05/21/2024 08:02:46 It was a [...] you for trusting us with your care! [email or web address] Not available 05/21/2024 12:22:44 07/15/2024 [id number] Sleep Disruption [facility] [email or web address] Not available 07/15/2024 12:50:05 Fiber FAQs [facility] [email or web address] Not available 07/15/2024 12:50:05 Any requested follow-up visits are listed below in the Plan of Care section. Go directly to the [facility] equipment planner at [email or web address] to book a time. Not available 07/15/2024 07:39:43 It was a [...] midlife, watch this short video from our [employer], . You will need to copy the following link into your browser to access the video: [email or web address] Of course, if you have further questions after watching, please reach out and I will be happy to support you. Not available 07/15/2024 12:52:54 09/02/2024 [id number] Fiber FAQs [facility] [email or web address] Not available 09/02/2024 15:51:52 Any requested follow-up visits are listed below in the Plan of Care section. Go directly to the [facility] equipment planner at [email or web address] to book a time. [email or web address] Not available 09/01/2024 18:47:01 It was a [...] midlife, watch this short video from our [employer], . You will need to copy the following link into your browser to access the video: [email or web address] Of course, if you have further questions after watching, please reach out and I will be happy to support you. Not available 09/02/2024 12:51:22 11/03/2024 [id number] Betty FARobe PRESSLEY [email or web address] Not available 11/03/2024 13:14:12 Any requested follow-up visits are listed below in the Plan of Care section. Go directly to the [employer] equipment planner at [email or web address] to book a time. Not available 11/02/2024 17:29:46 It was a pleasur e to meet with you today! We discussed your health concerns related to weight management and your current use of semaglutide. Your Care Plan Together, we decided that you would: - Continue your current regimen of semaglutide injections every Sunday at a dose of 0.75 mg. - A prescription for 1 mg of semaglutide from [facility] has been ordered for you, which should provide you with several weeks' supply. A refill has also been included. - Consider using a body composition scale at your gym to track muscle mass as you continue your strength training and rowing exercises. - Try to maintain your current weight and avoid further weight loss. - Add exercises targeting your deltoid muscles to enhance the appearance of your arms. We also discussed the potential future use of a sublingual form of semaglutide as an alternative if needed. This option is less expensive and bypasses the digestive tract, providing effective absorption into the bloodstream. A follow-up appointment has been scheduled for December 30 at 11:45 AM. Please carefully review the care plan we have agreed upon above, which includes specific information about your medication, exercise routine, and other important details about your overall care. Thank you for trusting us with your care! For more information regarding common questions about weight in midlife, watch this short video from our [employer], . You will need to copy the following link into your browser to access the video: [email or web address] Of course, if you have further questions after watching, please reach out and I will be happy to support you. [email or web address] Not available 11/03/2024 13:14:25 12/30/2024 [id number] Any requested follow-up visits are listed below in the Plan of Care section. Go directly to the [employer] equipment planner at [email or web address] to book a time. To schedule or modify your visit, access the [employer] portal here: [email or web address]) [email or web address] Not available 12/30/2024 13:01:50 Dear Millicent, It was great to see you today! Below is a summary of the plan we decided upon together: Abnormal weight gain and weight maintenance - Your weight remains stable between 138 lb and 140 lb. - You have successfully decreased your compounded semaglutide dose to 0.5 mg weekly without losing appetite control. - We discussed the current FDA landscape; at this time you can safely continue the compounded medication at your unique dosing schedule - Please message me through the portal when you are ready for a refill so we can send it promptly. - Keep practicing the healthy habits you have established to support long-term success. - Our next virtual appointment is scheduled for January at 11:30 AM. If you have any questions or experience any new symptoms, please do not hesitate to reach out to our office. Sincerely, Marina Duff NP [email or web address] Not available 12/30/2024 14:34:13 Reason for Referral None Reported. Problems Name Problem SNOMED Code Status Onset Date Resolution Date Notes Provider Name and Address Organization Details Recorded Time Menopausal symptom 78665921 Active 2022 [place] [address] [place], [address], [facility] 3 10:27:39 Polycystic ovary syndrome 310294128 Active 2022 [place] [address] [place], [address], [employer] [facility] 3 12:53:50 Essential hypertensio n 96049918 Active 2022 [place] [address] [place], [address], [employer] [facility] 3 13:03:55 Genitourina ry syndrome of menopause 3368980898343 9104 Active 2022 [place] [address] [place], [address], [employer] [facility] 3 14:31:11 Hyperlipide eitan 53478455 Active 2022 [place] [address] [place], [address], [facility] 3 13:43:21 Chronic depression 415830697 Active 2022 [place] [address] [place], [address], [facility] 3 14:51:31 Unintention al weight gain 4449462216286 04 Active 2022 [place] [address] [place], [address], [facility] 3 15:32:12 Screening for malignant neoplasm of breast Active 2023 Marina [place] [address] [place], [address], [facility] 4 13:05:22 Attention deficit hyperactivi ty disorder 510080429 Active 2023 [place] [address] [place], [address], [facility] 4 13:12:38 Cognitive function finding 055470188 Active 2023 Marina [place] [address] [place], [address], [facility] 4 14:56:13 Weight gain 8715099 Active 2023 [place], [address], [facility] 4 18:43:18 Liver enzymes level above reference range 792039121 Active 2023 [place], [address], [facility] 4 20:39:28 Body mass index 30+ - obesity 685325401 Active 2023 [place] [place] [address], [facility] 4 20:40:11 Fatigue 40296354 Active 2023 [place] [address] [place] [address] [address], [facility] 4 09:00:14 Abnormal weight gain 511747038 Active 2023 [place] [address] [address] [address] 2, [facility] 4 09:00:14 Obesity 410563897 Active 2023 [place] [address] [place] [address] [address] 2, [facility] 4 16:59:49 Postmenopau matilda bleeding 03954060 Active 2023 [place] [address] [place] [address] [address] 2, [facility] 4 12:12:12 Problem Notes None recorded. Medical Equipment None Reported. Allergies Allergen ID Allergen Name Allergen Category Reaction Reaction Severity Criticality Documentation Date Start Date Code Code System Note Provider Name and Address Organization Details Recorded Time 38391 Levaquin medicatio n Not available Not available Not available 05/08/2023 04078 2 [place] [address] [place] [address], [facility] 3 12:46:25 921405 levofloxa matt medicatio n nausea vomiting Not available Not available Not available 09/02/2024 41552 RxNorm React ion: Nause a, Vomit ing, Not Available kiley - External Data Service - prod 5 04:01:06 Medications Name Sig Start Date Stop Date [...] Rx Inject 0.5ml (0.5mg) SQ once weekly. 05/21 completed Not Available Not Available Not Available Semaglutide MIDI Inject 1.0 mg SQ weekly 2024 active Not Available Not Available Not Avai lable metformin 500 mg tablet TAKE 2 TABLETS [...] estradiol 0.05 mg/24 hr semiweekly transdermal patch APPLY 1 PATCH TO SKIN TWICE PER WEEK active Not Available Not Available No t Available alprazolam 0.25 mg tablet TAKE 1 [...] Not Available Not Available No t Available dicyclomine 10 mg capsule TAKE 1 CAPSULE BY MOUTH FOUR TIMES DAILY NEEDED FOR ABDOMINAL CRAMPS active Not Available Not Available No t Available progesteron e micronized 100 mg capsule Take 1 capsule(s ) every day by oral route at bedtime for 90 days. 2024 active Not Available Not Available Not Avai lable amoxicillin 875 mg-potassiu m clavulanate 125 mg [...] Updated DateTime 07/15/2024 162.56 cm 24.2 kg/m2 567[address].52 [place] [address] [place], [address], [facility] 07/15/2024 12:40:21 Date Recorded Body height Body mass index (BMI) Body weight Provider Name and Address Organization Details Last Updated DateTime 09/02/2024 162.56 cm 24 kg/m2 [address].93 [place] [address] [place], [address], [facility] 09/02/2024 12:34:30 Date Recorded Body height Body mass index (BMI) Body weight Provider Name and Address Organization Details Last Updated DateTime 11/03/2024 162.56 cm 23.9 kg/m2 9[address].34 [place] [address] [place], [address], [facility] 11/03/2024 13:02:03 Date Recorded Body height Body mass index (BMI) Body weight Provider Name and Address Organization Details Last Updated DateTime 12/30/2024 162.56 cm 24 kg/m2 62929.93 [place] [address] [place], [address], [facility] 12/30/2024 12:55:03 Date Recorded Body height Body mass index (BMI) Body weight Provider Name and Address Organization Details Last Updated DateTime 05/21/2024 162.56 cm 24 kg/m2 [address].93 [place] [address] [place], [address], [facility] 05/21/2024 12:03:09 Social History None recorded. [...] SNOMED-CT Code Diagnosis ICD10 Code Diagnosis Note [id number] Marina Duff NP Main Office [address] [place] [address] 05/08/2023 12:01:55 05/09/2023 06:10:20 Menopausal symptom 50374774 N95.1 Earline patient , with no cycle [...] new treatment regimen. Contracept ion care management 448851468 Z30.9 age 52 Genitourin rafi syndrome of menopause 0911527888 7843153 N95.8 - Patient reports vaginal dryness, a common symptom of genitourin rafi syndrome of menopause. - Prescribed either Vagifem or Yuvafem depending on insurance coverage, to be used nightly for two weeks and then twice weekly to manage vaginal dryness.- Educated the patient on the importance of maintainin g the health of the vulva, vagina, bladder, and urethra during menopause. Essential hypertension 81951254 I10 - Patient is currently taking Metoprolol for essential hypertensi on under care of pcp Polycystic ovary syndrome 688596589 E28.2 did have fertility treatment for second child 34186 Marina Duff NP Main Office [address] [place] [address] 06/11/2023 12:30:27 06/12/2023 05:43:07 Menopausal symptom 63350033 N95.1 - Patient's recent onset of breast [...] the night. Genitourin rafi syndrome of menopause 0323397250 5600029 N95.8 - Patient reports no issues with [...] and urethra during menopause. Polycystic ovary syndrome 821886272 E28.2 did have fertility treatment for second child Essential hypertension 83021899 I10 - Patient is currently taking Metoprolol for essential hypertensi on under care of pcp Chronic depression 53516 0009 F32.A Unintentio nal weight gain 2560752816 83609 R63.5 - Patient has gained weight rapidly, [...] patient including reasons to d/c (anxiety). Hyperlipidemia 04044054 E78.5 47506 Marina Duff NP Main Office [address] [place] [address] 07/30/2023 12:02:13 08/01/2023 05:04:58 Menopausal symptom 95360671 N95.1 - The patient's menopausal symptoms, including [...] e compounded today. Has lab orders from [facility] will draw this month and upload to chart. no history of abnormals with any screening labs to kidney, liver, no family history thyroid cancers, no personal history pancreatit is. Genitourin rafi syndrome of menopause 7939447435 1319268 N95.8 continue vagifem tab twice weekly Screening for malignant neoplasm of breast 722670196 Z12.39 - Ordered a screening mammogram for the patient due to her age and menopausal status.- The patient is encouraged to schedule and complete the mammogram at [facility]. Attention deficit hyperactivity disorder 500433105 F90.9 - The patient has a previous diagnosis of ADHD and reports continued cognitive issues.- Referred the patient to [facility] for cognitive testing and further evaluation of her ADHD symptoms.- The patient is encouraged to follow up with the neuropsych ologist and communicat e any changes or concerns. Essential hypertension 33946907 I10 - Patient is currently taking Metoprolol for essential hypertensi on under care of pcp Hyperlipidemia 60722270 E78.5 - The patient has a history of hyperlipid emia.- Ordered blood work to monitor the patient's lipid profile.- The patient is encouraged to maintain a healthy diet and lifestyle to manage her cholestero l levels. Polycystic ovary syndrome 492965863 E28.2 did have fertility treatment for second child Unintentio nal weight gain 0619570451 18294 R63.5 - The patient reports a weight gain of 30 pounds.- Discussed the option of using a compounded semaglutid e from [employer] to aid in weight loss.- Prescribed the [...] d/c (anxiety). Cognitive deficit in communication skills 1239979819 92472 R41.841 - The patient reports difficulty in conversati on, including trouble finding words and finishing sentences. - Referred the patient to [facility] for cognitive testing and further evaluation of her cognitive communicat ion deficit.- The patient is encouraged to follow up with the neuropsych ologist and communicat e any changes or concerns. Weight gain 6624791 R63. 5 099971 Marina Duff NP Main Office [address] [place] [address] 08/28/2023 12:00:30 08/29/2023 04:47:03 Menopausal symptom 53509691 N95.1 - Patient is currently on HRT [...] and with this result we will consult [facility] senior medical team. Reports starting MHT is only new event in time period and is absolutely not wanting to d/c.Meanwh ile, did start compounded semaglutid e (PCP is aware and had no objections ). Essential hypertension 45788279 I10 - Patient is currently taking Metoprolol for essential hypertensi on under care of pcp Genitourin rafi syndrome of menopause 5370331396 7136853 N95.8 continue vagifem tab twice weekly Liver enzy mes level above reference range 570004113 R74.01 - Recent blood tests showed a [...] e nausea, or other concerning symptoms. Hyperlipidemia 36407970 E78.5 - The patient has a history of hyperlipid emia.- Ordered blood work to monitor the patient's lipid profile.- The patient is encouraged to maintain a healthy diet and lifestyle to manage her cholestero l levels. Body mass index 30+ - obesity 363501516 Z68.30 - Patient recently started semaglutid e, a medication that can aid in weight management .- She reported some GI side effects and nausea, which are common when starting this medication .- Patient also noted an increase in energy since starting semaglutid e.- Plan to continue semaglutid e and monitor for any adverse effects or changes in weight. [id number] Marina Duff NP Main Office [address] [place] [address] 09/19/2023 11:07:17 09/24/2023 05:42:12 Body mass index 30+ - obesity 345325534 Z68.30 - Patient is currently on semaglutid [...] changes in weight. Abnormal weight gain 161 435581 R63.5 - Addressed with the use of semaglutid e injections for weight management .- Titration to 20 units after completing four injections of the starting dose (10 units).- Monitoring weight loss progress and adjusting treatment as needed. Obesity 921414094 E66.8 - Managed with semaglutid e injections for weight management .- Titration to 20 units after completing four injections of the starting dose (10 units).- Monitoring weight loss progress and adjusting treatment as needed. Difficulty sleeping 5804 20086 Z72.820 addressing with [facility] Health edu cation given 080754425 Z71.9 - Discussed the importance of maintainin g a balanced diet, focusing on protein, fruits, vegetables , and water intake while on semaglutid e.- Advised to watch out for diarrhea and constipati on with the increased dose of semaglutid e.- Informed patient to monitor labs in October, including kidney, liver, and pancreas function. Menopausal symptom 38249 002 N95.1 - Patient is currently on [...] and with this result we will consult [facility] senior medical team. Reports starting MHT is only new event in time period and is absolutely not wanting to d/c.Meanwh ile, did start compounded semaglutid e (PCP is aware and had no objections ). Liver enzy mes level above reference range 156356022 R74.01 - Recent blood tests showed a [...] EPEAT SERUM TESTING ALL WNL PCP REVIEWED [id number] Marina Duff NP Main Office [address] [place] [address] 10/24/2023 11:10:14 10/29/2023 03:50:53 Body mass index 30+ - obesity 043841361 Z68.30 - Significan t weight loss of [...] adverse effects or changes in weight. Obesity 675383995 E66.8 - Treatment not discussed, please review. - Managed with semaglutid e injections for weight management .- Titration to 20 units after completing four injections of the starting dose (10 units).- Monitoring weight loss progress and adjusting treatment as needed. Fatigue 06436094 R53.83 - Discussed the importance of maintainin g a balanced diet and exercise routine during weight loss.- Encouraged patient to monitor her symptoms and communicat e any concerns or changes. Difficulty sleeping 8693 73001 Z72.820 - Addressed in the obesity management plan above. addressing with [facility] Health [facility] cation given 475642101 Z71.9 - Patient reports three recent episodes of three-day vaginal bleeding.- Ordered a pelvic ultrasound (transabdo lelo and transvagin al) at [facility] in [place] to investigat e the cause of bleeding.- [...] kidney, liver, and pancreas function. Weight gain 5887774 R63. 5 see above -- continue to keep lowest effective dose aiming for 1 to 2 pound weekly weight loss Postmenopa usal bleeding 72628215 N95.0 [id number] Marina Duff NP Main Office [address] [place] [address] 01/21/2024 12:05:49 01/22/2024 15:12:55 Menopausal symptom 75703425 N95.1 - Patient is currently on hormone [...] and with this result we will consult [facility] senior medical team. Reports starting MHT is only new event in time period and is absolutely not wanting to d/c.Meanwh ile, did start compounded semaglutid e (PCP is aware and had no objections ). Abnormal weight gain 161 468138 R63.5 - Patient is on a compoundin [...] d at this time. Postmenopa usal bleeding 08846596 N95.0 - Patient experience s monthly bleeding [...] 6 weeks to discuss the ultrasound results. [id number] Marina Duff NP Main Office [address] [place] [address] 05/21/2024 11:12:32 05/23/2024 15:38:15 Abnormal weight gain 066239647 R63.5 - Patient currently at 140 pounds [...] dosing Body mass index 30+ - obesity 156574934 Z68.30 - Patient's current BMI is 24, [...] Liver enzy mes level above reference range 575911542 R74.01 - Recent blood tests showed a [...] WNL PCP REVIEWED consider retesting July 2024 [id number] Marina Duff NP Main Office [address] [place] [address] 07/15/2024 11:39:57 07/16/2024 04:09:10 Difficulty sleeping 448358369 Z72.820 addressing with [facility] Health edu cation given 229298560 Z71.9 - Educated patient on the importance [...] agrees with the education provided. Weight gain 0108624 R63. 5 - Patient's weight is stable [...] 2 pound weekly weight loss Menopausal symptom 77823 002 N95.1 - Patient is transition ing [...] and with this result we will consult [facility] senior medical team. Reports starting MHT is only new event in time period and is absolutely not wanting to d/c.Meanwh ile, did start compounded semaglutid e (PCP is aware and had no objections ). [id number] Marina Duff NP Main Office [address] [place] [address] 09/02/2024 11:41:45 09/03/2024 04:10:54 Health education given 162180448 Z71.9 - Provided detailed education on weight maintenanc e strategies , including the importance of regular self-weigh ing, daily exercise, and healthy eating habits.- Discussed the potential future availabili ty of oral semaglutid e for maintenanc e.- Informed patient about the safety and benefits of menopausal hormone therapy, tab magana a recent article from the [place] [employer]. Abnormal weight gain [id number] R63.5 - Patient is currently on a [...] monitor weight and medication efficacy. Menopausal symptom [id number] N95.1 - Patient is on estrogen [...] and with this result we will consult [facility] senior medical team. Reports starting MHT is only new event in time period and is absolutely not wanting to d/c.Meanwh ile, did start compounded semaglutid e (PCP is aware and had no objections ). Weight gain [id number] R63. 5 - Patient's weight is stable [...] 1 to 2 pound weekly weight loss [id number] Marina Duff NP Main Office [address] [place] [address] 11/03/2024 12:16:41 11/04/2024 04:15:46 Fatigue [id number] R53.83 - Discussed the importance of maintainin g a balanced diet and exercise routine during weight loss.- Encouraged patient to monitor her symptoms and communicat e any concerns or changes. [facility] edu cation given [id number] Z71.9 - Provided instructio n on maintainin g muscle mass through strength training and monitoring body compositio n at the gym.- Advised on the importance of stable weight while optimizing muscle mass.- Educated on alternativ e semaglutid e delivery methods (sublingua l) if changes in regulation s limit current therapy. - Provided detailed education on weight maintenanc e strategies , including the importance of regular self-weigh ing, daily exercise, and healthy eating habits.- Discussed the potential future availabili ty of oral semaglutid e for maintenanc e.- Informed patient about the safety and benefits of menopausal hormone therapy, tab g a recent article from the [place] [employer]. Abnormal weight gain 161 [id number] R63.5 - Patient is currently on a [...] PM to monitor weight and medication efficacy. Weight gain [id number] R63. 5 - Patient's weight is stable [...] 1 to 2 pound weekly weight loss Obesity [id number] Z68.30 - Currently stable with ongoing weight reduction; patient s weight is 139 lbs and she is advised to avoid further weight loss.- Continuing compounded semaglutid e injection once weekly at a custom 0.75 mg dose; prescripti on ordered through [facility] at the 1 mg strength to provide sufficient supply.- Documented rationale for customized dosing ([employer] l formulatio n does not provide this exact dose).- Discussed possible sublingual semaglutid e option in the future if compounded injectable becomes unavailabl e.- Scheduled follow-up visit on December 30 at 11:45. [id number] Marina Duff NP Main Office [address] [place] [address] 12/30/2024 12:09:21 12/31/2024 04:39:19 Abnormal weight gain [id number] R63.5 - Diagnosis: Abnormal weight gain - Assessment : The patient has a history of weight gain but is presently weight stable on semaglutid e maintenanc e dosing. - Plan: Reviewed risks, benefits, and current regulatory climate for compounded semaglutid e; agreed to continue 0.5 mg subcutaneo us weekly; patient will message through the portal when a refill is required; follow-up telehealth visit set for February 16 2025 at 11:30 AM. - Medication s supplement s: Semaglutid e (compounde d) 0.5 mg subcutaneo us weekly. - Lifestyle measures: Continue current eating habits and regular weight monitoring to maintain weight within 138-140 lb range. - Follow up: Televisit in 7 weeks or sooner if medication access issues arise. Health Concerns Section Related Observation LastModified by Organization Detai ls LastModified Time None Recorded Concern Status LastModified by Organization Details LastModified Time None Recorded Advance Directives Directive None Recorded Payers Insurance Date Sequence Insurance Name Policy Number Policy Fair Covered Member ID Fair Member ID Guarantor Name 01/05/2025 1 [facility] [id number] Millicent A [employer] [id number] Mill[employer] Notes Date Note Type Note Provider Name and Address Organization Details Recorded Time 05/21/2024 text/html ROS as noted in the [facility] Virtual Visit AttestationModality : VideoProvider Location: Home Patient Location[place] using slightly less than prescribed weekly dose for maintenance, currently at 140# bmi 24. Pleased with results, continues to emphasize protein and fiber (veg) in diet, and has energy to [place] [id number] [place], [address], [employer] 05/21/2024 12:25:53 07/15/2024 text/html ROS as noted in the [facility] Virtual Visit AttestationModality : VideoProvider Location: Home Patient Location: Home Patient State: [place] Highest BMI:Starting weight: BMI:Current weight: BMI:Goal weight: Review of nutrition, exercise, sleep, and stress [...] [place] [address] [place], [address], [employer] 07/15/2024 16:03:36 09/02/2024 text/html ROS as noted in the [facility] Virtual Visit AttestationModality : VideoProvider Location: Home Patient Location: Home Patient State: [place] Highest BMI:Starting weight: BMI:Current weight: 140 BMI:Goal weight: Review of nutrition, exercise, sleep, and stress includes:has reduced the semaglutide to .3 on the syringe (.75 mg) and is therefore is getting 6 weeks out of the vial. Is experiencing a decrease in food noise [place] [address] [place], [address], [facility] [employer] [facility] 09/02/2024 15:52:18 11/03/2024 text/html ROS as noted in the [facility] Virtual Visit AttestationModality : VideoProvider Location: Home Patient Location: Home Patient State: [place] Highest BMI:Starting weight: BMI:Current weight: 139 BMI: 23.9Goal weight: Review of nutrition, exercise, sleep, and stress includes:1 mg semaglutide weekly at a dose of 30 ml which is a custom dose of .75 mgstrength training at [facility] -- advised to see if [employer] weight composition is available to assess muscle mass [place] [address] [place], [address], [facility] [employer] [facility] [place] 11/03/2024 21:11:52 12/30/2024 text/html ROS as noted in the [facility] Virtual Visit AttestationModality : VideoProvider Location: Home Patient Location: [place] Patient [place] unique dosingChief complaint: Follow up for weight maintenance on compounded semaglutide therapy. History of present illness hpi: Female presenting with follow up for weight maintenance on compounded semaglutide therapy. Weight maintenance on semaglutide - Over the past two weeks she lowered her compounded semaglutide dose to 20 units weekly, equivalent to 0.5 mg. - Reports weight fluctuates between 138 lb and 140 lb, which she considers stable. - Notes no change in appetite suppression or overall well-being after reducing the dose. -- States she will request a [place] [address] [place], [address], [facility] 12/30/2024 14:34:43 OBGyn Episode No OBEpisode recorded.
--- OUTSIDE RECORDS SUMMARY | 2025-01-23 08:02 | XMS_ITS | Referral Summary ---
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 Gender Identity Not on file Sexual Orientation Not on file Last Filed Vital Signs Vital Sign Reading Time Taken Comments Blood Pressure 122/72 08/02/2024 4:04 PM MACHINE ADJUSTER LEADER CASE TRIM Pulse 84 08/02/2024 4:04 PM MACHINE ADJUSTER LEADER CASE TRIM Temperature 37 C (98.6 F) 08/02/2024 4:04 PM MACHINE ADJUSTER LEADER CASE TRIM Respiratory Rate 18 08/02/2024 4:04 PM MACHINE ADJUSTER LEADER CASE TRIM Oxygen Saturation 99% 08/02/2024 4:04 PM MACHINE ADJUSTER LEADER CASE TRIM Inhaled Oxygen Concentration - - Weight 65.6 kg (144 lb 9.6 oz) 08/02/2024 4:04 P M MACHINE ADJUSTER LEADER CASE TRIM Height 162.6 cm (5' 4) 08/02/2024 4:04 PM MACHINE ADJUSTER LEADER CASE TRIM Body Mass Index 24.82 08/02/2024 4:04 PM MACHINE ADJUSTER LEADER CASE TRIM Plan of Treatment Not on file Insurance [facility] Care Teams Special Ed Assistant Relationship Specialty Start Date End Date Unknown, Notinfile PCP - General 08/02/24
--- OUTSIDE RECORDS SUMMARY | 2025-01-23 08:02 | XMS_ITS | Patient Health Record ---
Author Organization [facility] [employer] Address [address] [place] [address] Care Team Providers Care Mainspring Former [place] [employer] Name Role Phone Katie Amaro Unavailable [phone] Reason For Referral No Information Medications Medication SIG (Take, Route, Fr equency, Duration) Notes Start Date End Date Status Cymbalta 60 MG Oral Activ e Adderall 5 MG Oral Active traZODone HCl 50 MG Oral Active Adderall 10 MG Oral Activ e Plan Of Treatment No Information
--- OUTSIDE RECORDS SUMMARY | 2025-01-23 08:02 | XMS_ITS | Clinical Summary ---
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82 08/02/2024 4:04 PM PITCH FILLER Plan of Treatment Health Maintenance Due Date Last Done Comments Breast Cancer Screening-Mammogram 1969 Cervical Cancer Screening 1969 Colon Cancer Screening-Colonoscopy 1969 Depression Screening 1969 Hepatitis C Screening 1969 DTaP/Tdap/Td Vaccine (1 - Tdap) 1980 Hepatitis B Screening 1987 Regular Well Visit/Exam 18-64 1987 Zoster Vaccine (1 of 2) 2019 Covid-19 Vaccine (4 2023-2 5 season) 2024 04/08/2021, 07/13/2020, 06/22/2020 Influenza Vaccine (#1) 2025 , 05/15/2023 Pneumococcal vaccine <65 Aged Out No longer eligible based on patient's age to complete this topic Insurance [facility] Care Teams Choke Setter Relationship Specialty Start Date End Date Unknown, Notinfile PCP - General 08/02/24
[2025-01-23 08:17] LABS: Hematocrit 35.9 % (37.0-47.0); Hemoglobin 12.1 g/dL (12.0-15.0); Mean Corpuscular HGB Conc 33.7 g/dl (32-36); Mean Corpuscular Hemoglobin 32.1 pg (26-34); Mean Corpuscular Volume 95.2 fl (80-100); Platelet Count Result 196 k/mm3 (150-375); Red Blood Count 3.77 M/mm3 (4.2-5.4); White Blood Count 5.3 K/mm3 (4.5-10.0)
[2025-01-23 08:38] LABS: Alanine Aminotransferase 14 U/L (6-35); Albumin Level 3.9 g/dL (3.5-5.1); Alkaline Phosphatase 49 U/L (38-126); Anion Gap 5 mmol/L (4-12); Aspartate Amino Transferase 27 U/L (14-36); Bilirubin,Total 0.7 mg/dL (0.2-1.3); Blood Urea Nitrogen 10 mg/dL (7-17); Calcium 8.7 mg/dL (8.4-10.2); Carbon Dioxide 27 mmol/L (22-30); Chloride 104 mmol/L (98-107); Cholesterol 166 mg/dL (0-200); Estimated Glomerular Filt Rate > 60; Glucose 90 mg/dL (65-110); HDL Direct 68 mg/dL; Potassium 4.4 mmol/L (3.4-5.0); Sodium 136 mmol/L (137-145); Total Protein 6.8 g/dL (6.3-8.2); Triglycerides 51 mg/dL (<150)
[2025-01-23 09:13] LABS: Thyroid Stimulating Hormone 1.930 uIU/mL (0.465-4.680)
== END 2025-01-23 07:58 | disposition home or self-care (01) ==
LOC: ANHLAB 07:59
PROVIDERS: PCP Family Medicine; Visit Provider Nurse Practitioner
DX: Z00.00 Encounter for general adult medical examination without abnormal findings (principal); E55.9 Vitamin D deficiency, unspecified
CPT/HCPCS: 36415; 80053; 80061; 82306; 84443; 85027

== ENCOUNTER 2025-01-26 16:15 | Outpatient (NON) | payer OTHER, SELFPAY ==
--- OUTSIDE RECORDS SUMMARY | 2025-01-26 16:31 | XMS_ITS | Referral Summary ---
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 WAFER CUTTER Gender Identity Not on file Sexual Orientation Not on file Last Filed Vital Signs Vital Sign Reading Time Taken Comments Blood Pressure 122/72 08/02/2024 4:04 PM WAFER CUTTER Pulse 84 08/02/2024 4:04 PM WAFER CUTTER Temperature 37 C (98.6 F) 08/02/2024 4:04 PM WAFER CUTTER Respiratory Rate 18 08/02/2024 4:04 PM WAFER CUTTER Oxygen Saturation 99% 08/02/2024 4:04 PM WAFER CUTTER Inhaled Oxygen Concentration - - Weight 65.6 kg (144 lb 9.6 oz) 08/02/2024 4:04 P M WAFER CUTTER Height 162.6 cm (5' 4) 08/02/2024 4:04 PM WAFER CUTTER Body Mass Index 24.82 08/02/2024 4:04 PM WAFER CUTTER Plan of Treatment Not on file Insurance [facility] Care Teams Team Cdl Driver Relationship Specialty Start Date End Date Unknown, Notinfile PCP - General 08/02/24
--- OUTSIDE RECORDS SUMMARY | 2025-01-26 16:31 | XMS_ITS | Clinical Summary ---
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 Gender Identity Not on file Sexual Orientation Not on file Obstetrics History Last Filed Vital Signs Vital Sign Reading Time Taken Comments Blood Pressure 122/72 08/02/2024 4:04 PM FRUIT HARVEST WORKER Pulse 84 08/02/2024 4:04 PM FRUIT HARVEST WORKER Temperature 37 C (98.6 F) 08/02/2024 4:04 PM FRUIT HARVEST WORKER Respiratory Rate 18 08/02/2024 4:04 PM FRUIT HARVEST WORKER Oxygen Saturation 99% 08/02/2024 4:04 PM FRUIT HARVEST WORKER Inhaled Oxygen Concentration - - Weight 65.6 kg (144 lb 9.6 oz) 08/02/2024 4:04 P M FRUIT HARVEST WORKER Height 162.6 cm (5' 4) 08/02/2024 4:04 PM FRUIT HARVEST WORKER Body Mass Index 24.82 08/02/2024 4:04 PM FRUIT HARVEST WORKER Plan of Treatment Health Maintenance Due [...] patient's age to complete this topic Insurance [facility] Care Teams Steward/Stewardess Second Class Relationship Specialty Start Date End Date Unknown, Notinfile PCP - General 08/02/24
== END 2025-01-26 16:16 | disposition home or self-care (01) ==
LOC: ANHGOSHLAB 16:17
PROVIDERS: PCP Family Medicine; Visit Provider Nurse Practitioner
DX: R30.0 Dysuria (principal)
CPT/HCPCS: 87086